=== PATIENT | female | born 1940 | race Caucasian/White ===

== ENCOUNTER 2021-11-28 07:04 | Inpatient (IN) | payer MEDICARE, BC ==
--- NOTE | 2021-11-28 07:48 | ED ---
General Adult HPI - General Chief complaint: Neuro Symptoms/Deficit Stated complaint: L sided weakness, Dizziness Time Seen by Provider: 11/28/21 07:06 Source: patient Mode of arrival: wheelchair Limitations: no limitations - History of Present Illness Initial comments: Dictation was produced using [employer] dictation software. please excuse any gramm atical, word or spelling errors. Chief Complaint: Patient is 81-year-old female presents to the emergency Department with left lower extremity weakness History of Present Illness: Patient is a 81-year-old female presents to the emergency department for left lower extremity weakness. Patient states her symptoms began yesterday. Patient states that she tried to stand up and noticed that her left leg was weaker. Patient states she only notices when she tries to get up and stand. 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 She states that she gets frequent ocular injections. Patient states since she first noticed her symptoms yesterday her left lower extremity weakness is significantly improved. Patient also reports a very mild headache. States is not the worse headache of her life not severe. She states it's bitemporal and throbbing in nature. The ROS documented in this emergency department record has been reviewed and confirmed by me. Those systems with pertinent positive or negative responses have been documented in the HPI. All other systems are other negative and/or noncontributory. PHYSICAL EXAM: General Impression: Alert and oriented x3, not in acute distress HEENT: Normocephalic atraumatic, extra-ocular movements intact, pupils equal and reactive to light bilaterally, mucous membranes moist. Cardiovascular: Heart regular rate and rhythm Chest: Able to complete full sentences, no retractions, no tachypnea Abdomen: abdomen soft, non-tender, non-distended, no organomegaly Musculoskeletal: Pulses present and equal in all extremities, no peripheral edema Motor: no focal deficits noted Neurological: CN II-XII grossly intact, no focal motor or sensory deficits noted, NIH 0, neurovascularly intact to the left lower extremity Skin: Intact with no visualized rashes Psych: Normal affect and mood ED course: 81-year-old female presents to the emergency department for left lower extremity weakness. Her neurologic exam is unremarkable. Her NIH score is 0. Patient does not have any physical exam findings to suggest CVA however she does have reported left lower extremity weakness especially with ambulating. Signs upon arrival are within acceptable limits. Patient's well-appearing at the bedside. Patient not a candidate for alteplase due to time of onset of symptoms exceeds the criteria and patient has NIH 0. Risk outweigh the benefits. Computed tomography scan of brain shows area of decreased attenuation in the posterior right temporal parietal region compatible with acute CVA. No evidence of hemorrhagic conversion. Laboratory evaluation obtained. CBC, coag panel, metabolic panel is unremarkable. CT angiography of the head and neck was obtained showing no large vessel occlusion. Patient given aspirin will be admitted to hospital with consultation to neurology. EKG interpretation: Ventricular rate 59, sinus bradycardia, TN interval 179, care is 80, QTc 417. No TN prolongation, no QTC prolongation, no ST or T-wave changes noted. No old EKG for comparison. Overall, this EKG is unremarkable - Related Data Allergies Allergy/AdvReac Type Severity Reaction Status Date / Time No Known Allergies Allergy Verified 11/28/21 07:15 Review of Systems ROS Statement: Those systems with pertinent positive or pertinent negative responses have been documented in the HPI. ROS Other: All systems not noted in ROS Statement are negative. Past Medical History Past Medical History: Hyperlipidemia, Hypertension History of Any Multi-Drug Resistant Organisms: None Reported Past Surgical History: Hysterectomy Past Psychological History: No Psychological Hx Reported Smoking Status: Never smoker Past Alcohol Use History: None Reported Past Drug Use History: None Reported General Exam Limitations: no limitations Course Vital Signs 11/28/21 11/28/21 11/28/21 07:10 07:55 08:55 Temperature 97.6 F Pulse Rate 64 57 L 56 L Respiratory 16 16 16 Rate Blood Pressure 163/87 180/89 180/76 O2 Sat by Pulse 98 98 100 Oximetry 11/28/21 09:18 Temperature Pulse Rate 57 L Respiratory 16 Rate Blood Pressure 180/76 O2 Sat by Pulse 98 Oximetry Medical Decision Making - Lab Data Result diagrams: 11/28/21 07:48 11/28/21 07:48 Lab Results 11/28/21 11/28/21 11/28/21 Range/Units 07:48 07:48 07:48 WBC 8.0 (3.8-10.6) k/uL RBC 4.55 (3.80-5.40) m/uL Hgb 13.7 (11.4-16.0) gm/dL Hct 42.6 (34.0-46.0) % MCV 93.6 (80.0-100.0) fL MCH 30.2 (25.0-35.0) pg MCHC 32.3 (31.0-37.0) g/dL RDW 12.6 (11.5-15.5) % Plt Count 242 (150-450) k/uL MPV 8.6 Neutrophils % 79 % Lymphocytes % 12 % Monocytes % 5 % Eosinophils % 2 % Basophils % 1 % Neutrophils # 6.3 (1.3-7.7) k/uL Lymphocytes # 1.0 (1.0-4.8) k/uL Monocytes # 0.4 (0-1.0) k/uL Eosinophils # 0.2 (0-0.7) k/uL Basophils # 0.1 (0-0.2) k/uL PT 10.4 (9.0-12.0) sec INR 1.0 (<1.2) APTT 21.4 L (22.0-30.0) sec Sodium 136 L (137-145) mmol/L Potassium 4.1 (3.5-5.1) mmol/L Chloride 105 (98-107) mmol/L Carbon Dioxide 22 (22-30) mmol/L Anion Gap 9 mmol/L BUN 15 (7-17) mg/dL Creatinine 0.90 (0.52-1.04) mg/dL Est GFR (CKD-EPI)AfAm 71 (>60 ml/min/1.73 sqM) Est GFR (CKD-EPI)NonAf 61 (>60 ml/min/1.73 sqM) Glucose 135 H (74-99) mg/dL Calcium 9.4 (8.4-10.2) mg/dL Critical Care Time Critical Care Time: No Disposition Clinical Impression: Cerebrovascular accident (CVA) Disposition: ADMITTED IP TO THIS [facility] Condition: Serious Referrals: Lucille Dickey MD [Primary Care Provider] - 1-2 days Decision Time: 09:37
[2021-11-28 07:56] LABS: Basophils # (A) 0.1 k/uL (0-0.2); Basophils % (A) 1 %; Eosinophils # (A) 0.2 k/uL (0-0.7); Eosinophils % (A) 2 %; HCT 42.6 % (34.0-46.0); HGB 13.7 gm/dL (11.4-16.0); Lymphocytes % (A) 12 %; MCH 30.2 pg (25.0-35.0); MCHC 32.3 g/dL (31.0-37.0); MCV 93.6 fL (80.0-100.0); Mean Platelet Volume 8.6; Monocytes # (A) 0.4 k/uL (0-1.0); Monocytes % (A) 5 %; Neutrophils # (A) 6.3 k/uL (1.3-7.7); Neutrophils % (A) 79 %; Platelet Count 242 k/uL (150-450); RBC 4.55 m/uL (3.80-5.40); RDW 12.6 % (11.5-15.5)
[2021-11-28 08:08] LABS: Calcium 9.4 mg/dL (8.4-10.2); Potassium 4.1 mmol/L (3.5-5.1)
--- NOTE | 2021-11-28 08:13 | CT ---
EXAMINATION TYPE: CT brain wo con DATE OF EXAM: 11/28/2021 COMPARISON: None HISTORY: Lt leg weakness CT DLP: 1066.[address] of the brain was performed. The ventricles, basal cisterns and sulci overlying the cerebral convexities demonstrate mild enlargem ent. Acute area of decreased attenuation posterior right temporal parietal region measuring 4.7 x 2.7 cm compatible with acute CVA. There is no evidence for intracranial hemorrhage or sulcal effacement. There is decreased attenuation about the periventricular white matter and deep white matter of both c erebral hemispheres, compatible with chronic small vessel ischemia. Differential diagnosis does inclu de demyelination. No mass effects are seen.No midline shift. Osseous calvarium is intact. If symptoms persist consider MRI. IMPRESSION: 1. Acute area of decreased attenuation posterior right temporal parietal region measuring 4.7 x 2.7 c m compatible with acute CVA. No evidence for hemorrhagic transformation.
[2021-11-28 08:16] LABS: Prothrombin Time 10.4 sec (9.0-12.0)
[2021-11-28 08:21] LABS: Partial Thromboplastin Time 21.4 sec (22.0-30.0)
[2021-11-28] MEDS ORDERED: ASPIRIN 81 MG PO STA (09:06)
--- NOTE | 2021-11-28 09:26 | CT ---
EXAMINATION TYPE: CT angio head neck DATE OF EXAM: 11/28/2021 COMPARISON: None HISTORY: Lt sided weakness, dizziness CT DLP: 375.5 mGycm CONTRAST: Performed with IV Contrast, patient injected with 65 mL of Isovue 370. Combination Contrast CTA cervical carotids and [place] CTA cervical carotids with 3-D recons truction Contrast CTA of the cervical carotids was performed 3-D reconstruction imaging obtained at a separate workstation. Right carotid system: Mild plaque is seen of the right common carotid artery. There is mild plaque a lso noted at the carotid bulb and proximal ICA. No significant diameter reduction. ECA is patent. Right vertebral artery appears unremarkable. Left carotid system: Mild plaque is seen of the left common carotid artery. There is mild plaque als o noted at the carotid bulb and proximal ICA. No significant diameter reduction. ECA is patent. Lef t vertebral artery appears unremarkable. IMPRESSION: 1. No significant diameter reduction to account for the patient's symptoms. CTA [place] with 3-D reconstruction Contrast CTA of the [place] was performed 3-D reconstruction imaging obtained at a separate workstation. There is occlusion right [employer] at its midportion compatible with right [employer] territory infarct. Left [employer] demonstrates a normal appearance. The remaining intracranial portions of the internal carotid arterie s and their major tributaries are patent as is the vertebrobasilar system. I do not see evidence for sizable aneurysm or vascular malformation. Please note MRI provides greater sensitivity and specific ity. Visualized brain appears grossly unremarkable. IMPRESSION: 1. There is occlusion right [employer] at its midportion compatible with right [employer] territory infarct. NASCET criteria was used in interpretation of this exam?
[2021-11-28] MEDS: SODIUM CHLORIDE 0.9% 1,000 ML IV SCH (09:46)
[2021-11-28] MEDS ORDERED: ATORVASTATIN 80 MG TAB PO STA (09:57)
--- NOTE | 2021-11-28 13:04 | P.CNNES ---
History of Present Illness Consult date: 11/28/21 Requesting physician: Brian Gonzalez Reason for Consult: acute CVA History of Present Illness: This is a 81-year-old woman with history of hypertension, dyslipidemia, right eye cataract and glaucoma as well as macular degeneration who presented to the emergency department because of the left leg weakness, dizziness. Patient is accompanied by her daughter and son-in-law who are bedside. He is seems the patient symptoms onset was at 5am yesterday and went to bed prior to that at 7:30 PM the night prior. She stated that when she woke up yesterday of 5 AM she noticed that the her left leg was heavy, she was having dizziness and lightheadedness and mild headache over the frontal region. Patient thought was due to her blood pressure but her symptoms continued. As a result, it seems her other family members were informed the next day and so she was brought to the hospital because of her symptoms. She denies any nausea, vomiting, denies any numbness, difficulty swallowing. She denies any history of stroke or TIA in the past. Patient is on aspirin 81 mg daily as well as Lipitor 40 mg daily. She denies of any tobacco use or any illicit drug use. The next Some of the workup in our facility consisted of: Her initial low blood pressure was 163/87 repeated was in the 180s over 70s to 80s. CT of the head is reported as acute area of decreased attenuation posterior right temporal parietal region measuring 4.72.7 cm compatible with acute CVA. No evidence for hemorrhagic transformation. I personally reviewed the CT of the head and I feel it's more acute to subacute subacute (leaning towards subacute) over the left temporal occipital region. Otherwise no intracranial hemorrhage CT angiography of the head and neck There is occlusion in the right TRAINING TECHNICIAN at it's midportion compatible with a right TRAINING TECHNICIAN territory infarct Patient NIH stroke scale was a 0. Patient is not a candidate for alteplase due to her being outside the window and the risks outweigh the benefits. Review of Systems Review of system: The 12 point system was reviewed and apparent positive and negative per HPI. Past Medical History Past Medical History: Hyperlipidemia, Hypertension History of Any Multi-Drug Resistant Organisms: None Reported Past Surgical History: Hysterectomy Past Psychological History: No Psychological Hx Reported Smoking Status: Never smoker Past Alcohol Use History: None Reported Past Drug Use History: None Reported Medications and Allergies Home Medications Medication Instructions Recorded Confirmed Type Atorvastatin Calcium [Lipitor] 40 mg PO DAILY 11/28/21 11/28/21 History Brimonidine Tartrate [Alphagan P 1 drops BOTH EYES BID 11/28/21 11/28/21 History 0.2% Ophth Soln] Dorzolamide HCl/Pf [Dorzolamide 2% 1 drop BOTH EYES BID 11/28/21 11/28/21 History Eye Drop] Latanoprost/Pf [Latanoprost 0.005% 1 drop BOTH EYES HS 11/28/21 11/28/21 History Eye Drop] Timolol 0.5% Ophth Soln [Timoptic 1 drop BOTH EYES BID 11/28/21 11/28/21 History 0.5% Ophth Soln] atenoloL [Tenormin] 25 mg PO DAILY 11/28/21 11/28/21 History lisinopriL [Zestril] 10 mg PO DAILY 11/28/21 11/28/21 History Allergies Allergy/AdvReac Type Severity Reaction Status Date / Time No Known Allergies Allergy Verified 11/28/21 11:07 Physical Examination - Vital Signs Vital Signs: Vital Signs Temp Pulse Pulse Resp BP BP Pulse Ox 11/28/21 12:00 98.2 F 51 L 16 182/81 99 11/28/21 10:45 97.3 F L 54 L 18 198/64 99 11/28/21 09:31 52 L 16 186/85 98 11/28/21 09:18 57 L 16 180/76 98 11/28/21 08:55 56 L 16 180/76 100 11/28/21 07:55 57 L 16 180/89 98 11/28/21 07:10 97.6 F 64 16 163/87 98 Intake and Output 11/27/21 11/28/21 11/28/21 22:59 06:59 14:59 Other: Weight 58.513 kg GENERAL: The patient is lying in bed and is not in acute distress. CHEST: The heart rate is regular rate rhythm. No murmurs to auscultation. LUNG: Clear to auscultation bilaterally no wheezing noted throughout. Not labored breathing. ABDOMEN/GI: Bowel sounds present in all 4 quadrants. No tenderness to palpation throughout. NEUROLOGICAL: Higher mental function: The patient is awake, alert, oriented to self, place and time. Patient is following commands. No aphasia and no neglect. Cranial nerves: The pupils are round, equal and reactive to light and accommodation. Visual luna is left upper quandrant field cut bilaterally. Extraocular movement is intact no nystagmus is noted. Facial sensation is normal to touch throughout. The facial strength is normal throughout. Hearing is normal bilaterally to hand rub. Tongue is midline and moved [id number] without any difficulty. No dysarthria is noted. Shoulder shrug is normal bilaterally. Motor: The strength is left upper extremity is 4+ and no drift. Otherwise 5 over 5 throughout. Normal tone and bulk. Cerebellum: Normal finger to nose heel to [place] bilaterally. Sensation: Sensation is normal to touch throughout. Reflexes (right/left): 2+ throughout Plantars are mute bilaterally. Results - Laboratory Findings CBC and BMP: 11/28/21 07:48 11/28/21 07:48 Abnormal Lab Findings: Abnormal Labs 11/28/21 11/28/21 07:48 07:48 APTT 21.4 L Sodium 136 L Glucose 135 H Assessment and Plan Assessment: Acute to subacute CVA (right TRAINING TECHNICIAN stroke. I feel it's more right temporal occipital region. Has left superior homonymous quadrant anopia, left upper extremity weakness). Etiology of stroke is cryptogenic but seems embolic. Hypertension Dyslipidemia Plan: In the ED the patient was given aspirin 324mg once. I restarted the patient home medication of aspirin 81 mg daily and in addition I start the patient on Plavix 75 mg daily. The patient is to be on dual antiplatelet for 21 days and after 21 days stop aspirin but continue Plavix indefinitely. Continue Lipitor 40 mg daily at bedtime for secondary stroke prophylaxis but in addition I gave her a loading dose of Lipitor 80 mg once. Ordered MRI of the brain, TSH, hemoglobin A1c 2-D echo is ordered as well lipid panel. Every 4 hours neuro checks On cardiac monitoring Slowly control her hypertension and the avoid any aggressive measurement. I highly recommended the patient to be placed on an event monitor for 30 days prior to the leaving the hospital and to follow up with cardiology as outpatient. For DVT prophylaxis started the patient on subcu heparin 5000 units every 8 hours Recommend the patient to follow-up with a neurologist as outpatient within 1-2 weeks. The plan was discussed with the patient and her family members who were at bedside (daughter and son-in-law). Thank you for the consultation. Tim Russo M.D. Neuro-hospitalist Time with Patient: Greater than 30
[2021-11-28] MEDS: BRIMONIDINE TARTRATE 0.2% DROPS 5 ML BTL BOTH EYES SCH ×2 (13:08→20:53)
[2021-11-28] MEDS: DORZOLAMIDE HCL 2% DROPS 10 ML BTL BOTH EYES SCH ×2 (13:08→20:53)
--- NOTE | 2021-11-28 14:04 | P.HPIM ---
History of Present Illness This is a pleasant 81 years old female with past medical history of Hyperlipidemia, Hypertension Presents because of left-sided weakness and heaviness since yesterday however today his weakness in both upper and lower extremity are significantly improved, especially her leg she feels almost back to normal while some mild residual effect in the left upper extremity. She had some headache but now improved, no blurred vision or slurred speech. No gait abnormality. She felt lightheadedness also patient denies any chest pain or change in urine or bowel habits. No dyspnea. No fever. Patient may be bradycardic, blood pressure is 198/64, CBC, INR and BMP are unremarkable. EKG shows sinus bradycardia at [address]-T changes CTA of the brain showing possible right [facility] occlusion and infarct CT of the brain: Acute area of attenuation in the posterior right temporal region measuring 4.7 x 2.7 cm compatible with acute CVA Review of Systems CONSTITUTIONAL: No fever, no malaise, no fatigue. HEENT: No recent visual problems or hearing problems. Denied any sore throat. CARDIOVASCULAR: No orthopnea, PND, no palpitations, no syncope. PULMONARY: No shortness of breath, no cough, no hemoptysis. GASTROINTESTINAL: No diarrhea, no nausea, no vomiting, no abdominal pain. Normoactive bowel sounds. NEUROLOGICAL: No headaches, no weakness, no numbness. HEMATOLOGICAL: Denies any bleeding or petechiae. GENITOURINARY: Denies any burning micturition, frequency, or urgency. MUSCULOSKELETAL/RHEUMATOLOGICAL: Denies any joint pain, swelling, or any muscle pain. ENDOCRINE: Denies any polyuria or polydipsia. Past Medical History Past Medical History: Hyperlipidemia, Hypertension History of Any Multi-Drug Resistant Organisms: None Reported Past Surgical History: Hysterectomy Past Psychological History: No Psychological Hx Reported Smoking Status: Never smoker Past Alcohol Use History: None Reported Past Drug Use History: None Reported Medications and Allergies Home Medications Medication Instructions Recorded Confirmed Type Atorvastatin Calcium [Lipitor] 40 mg PO DAILY 11/28/21 11/28/21 History Brimonidine Tartrate [Alphagan P 1 drops BOTH EYES BID 11/28/21 11/28/21 History 0.2% Ophth Soln] Dorzolamide HCl/Pf [Dorzolamide 2% 1 drop BOTH EYES BID 11/28/21 11/28/21 History Eye Drop] Latanoprost/Pf [Latanoprost 0.005% 1 drop BOTH EYES HS 11/28/21 11/28/21 History Eye Drop] Timolol 0.5% Ophth Soln [Timoptic 1 drop BOTH EYES BID 11/28/21 11/28/21 History 0.5% Ophth Soln] atenoloL [Tenormin] 25 mg PO DAILY 11/28/21 11/28/21 History lisinopriL [Zestril] 10 mg PO DAILY 11/28/21 11/28/21 History Allergies Allergy/AdvReac Type Severity Reaction Status Date / Time No Known Allergies Allergy Verified 11/28/21 11:07 Physical Exam Vitals: Vital Signs Temp Pulse Pulse Resp BP BP Pulse Ox 11/28/21 10:45 97.3 F L 54 L 18 198/64 99 11/28/21 09:31 52 L 16 186/85 98 11/28/21 09:18 57 L 16 180/76 98 11/28/21 08:55 56 L 16 180/76 100 11/28/21 07:55 57 L 16 180/89 98 11/28/21 07:10 97.6 F 64 16 163/87 98 Intake and Output 11/27/21 11/28/21 11/28/21 22:59 06:59 14:59 Other: Weight 58.513 kg GENERAL: The patient is alert and oriented x3, not in any acute distress. Well developed, well nourished. HEENT: Pupils are round and equally reacting to light. EOMI. No scleral icterus. No conjunctival pallor. Normocephalic, atraumatic. No pharyngeal erythema. No thyromegaly. CARDIOVASCULAR: S1 and S2 present. No murmurs, rubs, or gallops. PULMONARY: Chest is clear to auscultation, no wheezing or crackles. ABDOMEN: Soft, nontender, nondistended, normoactive bowel sounds. No palpable organomegaly. MUSCULOSKELETAL: No joint swelling or deformity. EXTREMITIES: No cyanosis, clubbing, or pedal edema. NEUROLOGICAL: Gross neurological examination did not reveal any focal deficits. SKIN: No rashes. No petechiae Results CBC & Chem 7: 11/28/21 07:48 11/28/21 07:48 Labs: Abnormal Lab Results - Last 24 Hours (Table) 11/28/21 11/28/21 Range/Units 07:48 07:48 APTT 21.4 L (22.0-30.0) sec Sodium 136 L (137-145) mmol/L Glucose 135 H (74-99) mg/dL Assessment and Plan Assessment: Left hemiparesis secondary to acute stroke., CT of the brain showing possible right [facility] occlusion and infarct with right temporal stroke seen January the brain Hypertension, permissive hypertension for possible stroke Hyperlipidemia Plan: This is a pleasant 81 his old female who presents with left hemiparesis. Neurology consult MRI of the brain Continue with aspirin 325 mg Labs and medication were reviewed.. Continue same treatment. Continue with symptomatic treatment. Resume home medication. Monitor lytes and vitals. DVT and GI prophylaxis. Further recommendations depends on the clinical course of the patient DVT prophylaxis: Subcutaneous heparin GI Prophylaxis: Pepcid PT/OT: Pending Prognosis is guarded
[2021-11-28 14:51] LABS: T4, Free (Free Thyroxine) 1.47 ng/dL (0.78-2.19)
--- NOTE | 2021-11-28 15:37 | CA ---
Transthoracic Echo Report Name: Lakeisha Velasquez Age: 81 Gender: F : 1940 Exam Date: 11/28/2021 10:33 Exam Location: [facility] Ht (in): 64 Wt (lb): 129 Ordering Physician: Tim Russo MD Attending/Referring Phys: Plastic Press Operator Gail Go RDCS Procedure CPT: Indications: stroke Cardiac Hx: No cardia hx Technical Quality: Fair Contrast 1: Total Dose (mL): Contrast 2: Total Dose (mL): MEASUREMENTS (Male / Female) Normal Values 2D ECHO LV Diastolic Diameter PLAX 3.8 cm 4.2 - 5.9 / 3.9 - 5.3 cm LV Systolic Diameter PLAX 2.1 cm IVS Diastolic Thickness 1.1 cm 0.6 - 1.0 / 0.6 - 0.9 cm LVPW Diastolic Thickness 1.0 cm 0.6 - 1.0 / 0.6 - 0.9 cm LV Relative Wall Thickness 0.6 RV Internal Dim ED PLAX 2.7 cm M-MODE Aortic Root Diameter MM 2.6 cm LA Systolic Diameter MM 2.9 cm LA Ao Ratio MM 1.1 MV E Point Septal Separation 0.5 cm AV Cusp Separation MM 1.7 cm DOPPLER AV Peak Velocity 108.5 cm/s AV Peak Gradient 4.7 mmHg MV Area PHT 3.3 cm??? MR Peak Velocity 189.6 cm/s MR Peak Gradient 14.4 mmHg Mitral E Point Velocity 75.0 cm/s Mitral A Point Velocity 69.6 cm/s Mitral E to A Ratio 1.1 MV Deceleration Time 232.7 ms TR Peak Velocity 183.6 cm/s TR Peak Gradient 13.5 mmHg Right Ventricular Systolic Press 18.5 mmHg FINDINGS Left Ventricle Mildly increased septal wall thickness. Mildly increased posterior wall thickness. Left ventricular ejection fraction is estimated at 55-60__ %. Left ventricular cavity size normal. Right Ventricle Normal right ventricular size and function. Right Atrium Normal right atrial size. Left Atrium The left atrium is normal in size. Mitral Valve Structurally normal mitral valve without significant stenosis or prolapse. There is trace mitral regurgitation. Mitral valve thickened. Aortic Valve Structurally normal aortic valve without significant sclerosis or stenosis. There is no aortic regurgitation. Tricuspid Valve Structurally normal tricuspid valve without significant stenosis. Pulmonary artery systolic pressure is normal. Trace tricuspid regurgitation. Pulmonic Valve Structurally normal pulmonic valve without significant stenosis. There is no pulmonic regurgitation. Pericardium Normal pericardium without effusion. Aorta Normal aortic root dimension. CONCLUSIONS #1. Normal left ventricular size with mild concentric hypertrophy #2. Preserved LV function. #3. Trace mitral and tricuspid regurgitation Previewed by: Dr. Gianni Appiah MD (Electronically Signed) Final Date: 28 November 2021 15:36
[2021-11-28] MEDS: HEPARIN SODIUM,PORCINE/PF 5,000 UNIT/0.5 ML SYRINGE SQ SCH ×2 (16:19→23:31)
[2021-11-28] MEDS: CLOPIDOGREL 75 MG TAB PO SCH (16:20)
[2021-11-28] MEDS: LATANOPROST 0.005% OPHTH DROPS 2.5 ML BTL BOTH EYES SCH (20:52)
[2021-11-28] MEDS: TIMOLOL 0.5% OPHTH DROPS 5 ML BTL BOTH EYES SCH (20:52)
[2021-11-28] MEDS: FAMOTIDINE 20 MG/2 ML VIAL IV SCH (20:56)
[2021-11-29] MEDS: atenoloL 25 MG TAB PO SCH (08:56)
[2021-11-29] MEDS: CLOPIDOGREL 75 MG TAB PO SCH (08:56)
[2021-11-29] MEDS: ASPIRIN 81 MG PO SCH (08:56)
[2021-11-29] MEDS: HEPARIN SODIUM,PORCINE/PF 5,000 UNIT/0.5 ML SYRINGE SQ SCH ×3 (08:57→23:25)
[2021-11-29] MEDS: BRIMONIDINE TARTRATE 0.2% DROPS 5 ML BTL BOTH EYES SCH ×2 (08:57→20:13)
[2021-11-29] MEDS: TIMOLOL 0.5% OPHTH DROPS 5 ML BTL BOTH EYES SCH ×2 (08:57→20:13)
[2021-11-29] MEDS: DORZOLAMIDE HCL 2% DROPS 10 ML BTL BOTH EYES SCH ×2 (08:57→20:13)
[2021-11-29] MEDS ORDERED: ASPIRIN 325 MG TAB PO SCH (09:00)
[2021-11-29] MEDS ORDERED: NAPROXEN 250 MG TAB PO PRN (10:58)
[2021-11-29] MEDS ORDERED: ACETAMINOPHEN TAB 325 MG TAB PO STA (11:14)
[2021-11-29] MEDS ORDERED: ACETAMINOPHEN TAB 325 MG TAB PO PRN (11:14)
--- NOTE | 2021-11-29 11:29 | P.PN ---
Subjective Progress Note Date: 11/29/21 The patient is seen at bedside and stated she feels somewhat better today. She feels her left lower extremity heaviness has resolved. Has mild headache over the center of head. Denies any new focal deficit. Pending MRI Brain to be performed. Objective - Vital Signs Vital signs: Vital Signs Temp 98.4 F 11/29/21 04:00 Pulse 59 L 11/29/21 04:00 Resp 12 11/29/21 04:00 BP 160/79 11/29/21 04:00 Pulse Ox 99 11/29/21 04:00 FiO2 Intake & Output 11/28/21 11/29/21 11/29/21 18:59 06:59 18:59 Intake Total 480 240 120 Balance 480 240 120 Weight 58.513 kg Intake: Oral 480 240 120 Other: Voiding Method Toilet Toilet # Voids 3 2 - Exam GENERAL: The patient is lying in bed and is not in acute distress. NEUROLOGICAL: Higher mental function: The patient is awake, alert, oriented to self, place and time. Patient is following commands. No aphasia and no neglect. Cranial nerves: The pupils are round, equal and reactive to light and accommodation. Visual luna is left upper quandrant field cut bilaterally. Extraocular movement is intact no nystagmus is noted. Facial sensation is normal to touch throughout. The facial strength is normal throughout. Hearing is normal bilaterally to hand rub. Tongue is midline and moved [id number] without any difficulty. No dysarthria is noted. Shoulder shrug is normal bilaterally. Motor: The strength is left upper extremity is 5- and no drift. Otherwise 5 over 5 throughout. Normal tone and bulk. Cerebellum: Normal finger to nose heel to castelan bilaterally. Sensation: Sensation is normal to touch throughout. Reflexes (right/left): 2+ throughout Plantars are mute bilaterally. Some of the workup in our facility consisted of: TSH: 6.720 Free T4: 1.47 HbA1c: 6.0 CT of the head is reported as acute area of decreased attenuation posterior right temporal parietal region measuring 4.72.7 cm compatible with acute CVA. No evidence for hemorrhagic transformation. I personally reviewed the CT of the head and I feel it's more acute to subacute subacute (leaning towards subacute) over the left temporal occipital region. 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 I feel it's more right temporal occipital region. Has left superior homonymous quadrant anopia, mild left upper extremity weakness). Etiology of stroke is cryptogenic but seems embolic. Hypertension Dyslipidemia Plan: Continue home medication of aspirin 81 mg daily and in addition I start the patient on Plavix 75 mg daily (new during this hospital visit). The patient is to be on dual antiplatelet for 21 days and after 21 days stop aspirin but continue Plavix indefinitely. Continue Lipitor 40 mg daily at bedtime for secondary stroke prophylaxis. Pending MRI of the brain, 2-D echo and lipid panel. Every 4 hours neuro checks On cardiac monitoring Slowly control her hypertension and the avoid any aggressive measurement. I highly recommended the patient to be placed on an event monitor for 30 days prior to the leaving the hospital and to follow up with cardiology as outpatient. Cardiology is consulted. For DVT prophylaxis started On subcu heparin 5000 units every 8 hours Recommend the patient to follow-up with a neurologist as outpatient within 1-2 weeks. The plan was discussed with the patient and her daughter (via phone). Dr. Gaspar will start neurology service tomorrow AM. Tim Russo M.D. Neuro-hospitalist Time with Patient: Less than 30
[2021-11-29 11:38] LABS: Chol/HDL Ratio 2.92 Ratio; LDL Cholesterol,Calculated 91.2 mg/dL (0.0-131.0); VLDL Calculation 14.58 mg/dL (5.00-40.00)
[2021-11-29] MEDS: SODIUM CHLORIDE 0.9% 1,000 ML IV SCH (18:48)
[2021-11-29] MEDS: FAMOTIDINE 20 MG/2 ML VIAL IV SCH (20:12)
[2021-11-29] MEDS: LATANOPROST 0.005% OPHTH DROPS 2.5 ML BTL BOTH EYES SCH (20:12)
--- NOTE | 2021-11-29 20:59 | P.PN ---
Subjective This is a pleasant 81 years old female with past medical history of Hyperlipidemia, Hypertension Presents because of left-sided weakness and heaviness since yesterday however today his weakness in both upper and lower extremity are significantly improved, especially her leg she feels almost back to normal while some mild residual effect in the left upper extremity. She had some headache but now improved, no blurred vision or slurred speech. No gait abnormality. She felt lightheadedness also patient denies any chest pain or change in urine or bowel habits. No dyspnea. No fever. Patient may be bradycardic, blood pressure is 198/64, CBC, INR and BMP are unremarkable. EKG shows sinus bradycardia at [address]-T changes CTA of the brain showing possible right SWIMMER occlusion and infarct CT of the brain: Acute area of attenuation in the posterior right temporal region measuring 4.7 x 2.7 cm compatible with acute CVA 11/29/2021 Patient left hemiparesis resolved almost back to normal, only very minimal weakness in the left upper extremity No other complaint MRI of the brain is pending Patient will need aspirin for 21 days and Plavix continuously. Physical therapy evaluation is pending Check CBC tomorrow Cartilage team consulting for possible event monitor and reevaluation Objective - Vital Signs Vital signs: Vital Signs Temp 98.2 F 11/29/21 08:00 Pulse 60 11/29/21 14:00 Resp 16 11/29/21 14:00 BP 175/79 11/29/21 08:00 Pulse Ox 97 11/29/21 08:00 FiO2 Intake & Output 11/29/21 11/29/21 11/30/21 06:59 18:59 06:59 Intake Total 240 360 Balance 240 360 Intake: Oral 240 360 Other: Voiding Method Toilet Toilet # Voids 2 - Exam GENERAL: The patient is alert and oriented x3, not in any acute distress. Well developed, well nourished. HEENT: Pupils are round and equally reacting to light. EOMI. No scleral icterus. No conjunctival pallor. Normocephalic, atraumatic. No pharyngeal erythema. No thyromegaly. CARDIOVASCULAR: S1 and S2 present. No murmurs, rubs, or gallops. PULMONARY: Chest is clear to auscultation, no wheezing or crackles. ABDOMEN: Soft, nontender, nondistended, normoactive bowel sounds. No palpable organomegaly. MUSCULOSKELETAL: No joint swelling or deformity. EXTREMITIES: No cyanosis, clubbing, or pedal edema. NEUROLOGICAL: Gross neurological examination did not reveal any focal deficits. SKIN: No rashes. no petechiae. - Labs CBC & Chem 7: 11/28/21 07:48 11/28/21 07:48 Assessment and Plan Assessment: Left hemiparesis secondary to acute stroke., CT of the brain showing possible right SWIMMER occlusion and infarct with right temporal stroke seen January the brain Hypertension, permissive hypertension for possible stroke Hyperlipidemia Plan: This is a pleasant 81 his old female who presents with left hemiparesis. Neurology consult MRI of the brain Continue with aspirin 325 mg Labs and medication were reviewed.. Continue same treatment. Continue with symptomatic treatment. Resume home medication. Monitor lytes and vitals. DVT and GI prophylaxis. Further recommendations depends on the clinical course of the patient DVT prophylaxis: Subcutaneous heparin GI Prophylaxis: Pepcid PT/OT: Pending Prognosis is guarded
[2021-11-29] MEDS ORDERED: ATORVASTATIN 40 MG TAB PO SCH (21:00)
[2021-11-29] MEDS: lisinopriL 10 MG TAB PO SCH (21:57)
[2021-11-30 07:34] LABS: Basophils # (A) 0.1 k/uL (0-0.2); Basophils % (A) 1 %; Eosinophils # (A) 0.2 k/uL (0-0.7); Eosinophils % (A) 4 %; HCT 41.8 % (34.0-46.0); HGB 13.6 gm/dL (11.4-16.0); Lymphocytes # (A) 1.3 k/uL (1.0-4.8); Lymphocytes % (A) 23 %; MCH 30.6 pg (25.0-35.0); MCHC 32.4 g/dL (31.0-37.0); MCV 94.6 fL (80.0-100.0); Mean Platelet Volume 8.4; Monocytes # (A) 0.3 k/uL (0-1.0); Monocytes % (A) 6 %; Neutrophils # (A) 3.6 k/uL (1.3-7.7); Neutrophils % (A) 65 %; Platelet Count 233 k/uL (150-450); RBC 4.42 m/uL (3.80-5.40); RDW 12.9 % (11.5-15.5); WBC 5.6 k/uL (3.8-10.6)
[2021-11-30] MEDS: atenoloL 25 MG TAB PO SCH (08:13)
[2021-11-30] MEDS: HEPARIN SODIUM,PORCINE/PF 5,000 UNIT/0.5 ML SYRINGE SQ SCH ×3 (08:13→23:59)
[2021-11-30] MEDS: TIMOLOL 0.5% OPHTH DROPS 5 ML BTL BOTH EYES SCH ×2 (08:13→21:40)
[2021-11-30] MEDS: lisinopriL 10 MG TAB PO SCH ×3 (08:13→21:40)
[2021-11-30] MEDS: CLOPIDOGREL 75 MG TAB PO SCH (08:13)
[2021-11-30] MEDS: BRIMONIDINE TARTRATE 0.2% DROPS 5 ML BTL BOTH EYES SCH ×2 (08:13→21:40)
[2021-11-30] MEDS: ASPIRIN 81 MG PO SCH (08:13)
[2021-11-30] MEDS: DORZOLAMIDE HCL 2% DROPS 10 ML BTL BOTH EYES SCH ×2 (08:14→21:41)
[2021-11-30] MEDS: SODIUM CHLORIDE 0.9% 1,000 ML IV SCH (08:19)
--- NOTE | 2021-11-30 08:29 | P.CRDCN ---
History of Present Illness Consult date: 11/30/21 History of present illness: History of Present Illness: The patient is a 81-year-old female with a known history of hypertension and hyperlipidemia who presented to the hospital with left lower extremity weakness and numbness on the right side of the face, with diagnosed with CVA. Her symptoms resolved at this time. She has a history of hypertension and hyperlipidemia but no cardiac history in the past. She is average in her exercise tolerance without any associated chest discomfort, dyspnea or arrhythmia. She is in sinus mechanism with no episodes of atrial fibrillation. She denies any PND, orthopnea or peripheral edema. Her echocardiogram showed a normal systolic function. 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 As an outpatient she was on Zestril 10 mg daily, Tenormin 25 mg daily, Lipitor 40 mg daily Review of Systems: Respiratory: No history of asthma, bronchitis or recent cough. GI: She had nausea and vomiting today. No history of peptic ulcer disease. No recent GI bleed. : No hematuria or dysuria. Nervous System: No stroke except the symptoms on presentation or seizure. Physical Examination: 81-year-old female, alert and oriented not in distress. Blood pressure 152/79 with a heart rate in the 50s Head: Normocephalic. Eyes: Sclerae nonicteric. Neck: Good carotid upstroke, no bruit, no jugular venous distention. Lungs: Clear to auscultation. Heart: Regular rate and rhythm, S1-S2, no S3, no rub. No murmur. Abdomen: Soft nontender, positive bowel sounds no organomegaly. Extremities: No edema, intact distal pulses. Labs: Cholesterol 161, LDL 91, potassium 4.1, BUN 15 with creatinine 0.90. Hemoglobin 13.6. EKG shows sinus mechanism with no acute ST segment changes. Impression: 1. Status post CVA 2. History of hypertension 3. History of hyperlipidemia Plan: 1. No evidence to suggest cardiac etiology to her neurological event, no evidence of atrial fibrillation 2. Increase lisinopril 3. Increase atorvastatin 4. Event monitor as an outpatient to rule out paroxysmal atrial fibrillation 5. Follow-up in 2 weeks. The findings and the recommendations were discussed with the patient who is in full agreement and understanding. Thank you for this consult we will follow with you. Past Medical History Past Medical History: Hyperlipidemia, Hypertension Additional Past Medical History / Comment(s): pt. states she has right eye swelling and bleeding and gets injections in that eye History of Any Multi-Drug Resistant Organisms: None Reported Past Surgical History: Hysterectomy Past Anesthesia/Blood Transfusion Reactions: No Reported Reaction Past Psychological History: No Psychological Hx Reported Smoking Status: Never smoker Past Alcohol Use History: None Reported Past Drug Use History: None Reported Medications and Allergies Home Medications Medication Instructions Recorded Confirmed Type Atorvastatin Calcium [Lipitor] 40 mg PO DAILY 11/28/21 11/28/21 History Brimonidine Tartrate [Alphagan P 1 drops BOTH EYES BID 11/28/21 11/28/21 History 0.2% Ophth Soln] Dorzolamide HCl/Pf [Dorzolamide 2% 1 drop BOTH EYES BID 11/28/21 11/28/21 History Eye Drop] Latanoprost/Pf [Latanoprost 0.005% 1 drop BOTH EYES HS 11/28/21 11/28/21 History Eye Drop] Timolol 0.5% Ophth Soln [Timoptic 1 drop BOTH EYES BID 11/28/21 11/28/21 History 0.5% Ophth Soln] atenoloL [Tenormin] 25 mg PO DAILY 11/28/21 11/28/21 History lisinopriL [Zestril] 10 mg PO DAILY 11/28/21 11/28/21 History Allergies Allergy/AdvReac Type Severity Reaction Status Date / Time No Known Allergies Allergy Verified 11/28/21 11:07 Physical Exam Vitals: Vital Signs Temp Pulse Pulse Resp BP BP Pulse Ox 11/30/21 04:00 58 L 12 152/79 98 11/30/21 00:00 98.4 F 51 L 12 149/78 98 11/29/21 23:29 98.4 F 51 L 14 149/78 98 11/29/21 20:00 98.0 F 51 L 51 L 14 163/81 163/81 98 11/29/21 16:00 97.7 F 56 L 16 183/93 95 11/29/21 14:00 60 16 11/29/21 09:31 16 Intake and Output 11/29/21 11/30/21 11/30/21 22:59 06:59 14:59 Intake Total 120 Balance 120 Intake: Oral 120 Other: Voiding Method Toilet Toilet # Voids 1 Results 11/30/21 06:30 11/28/21 07:48 Lipids 11/29/21 Range/Units 07:30 Triglycerides 72.90 (0.00-149.00) mg/dL Cholesterol 161.00 (0.00-200.00) mg/dL HDL Cholesterol 55.20 (40.00-60.00) mg/dL Cholesterol/HDL Ratio 2.92 Ratio CBC 11/30/21 Range/Units 06:30 WBC 5.6 (3.8-10.6) k/uL RBC 4.42 (3.80-5.40) m/uL Hgb 13.6 (11.4-16.0) gm/dL Hct 41.8 (34.0-46.0) % Plt Count 233 (150-450) k/uL Current Medications Generic Name Dose Route Start Last Admin Trade Name Freq PRN Reason Stop Dose Admin Acetaminophen 325 mg 11/29/21 11:14 Acetaminophen Tab 325 Mg Tab PO Q6HR PRN Fever and/ or Pain Aspirin 81 mg 11/29/21 09:00 11/30/21 08:13 Aspirin 81 Mg PO 81 mg DAILY RODRIGO Administration Atenolol 25 mg 11/29/21 09:00 11/30/21 08:13 Atenolol 25 Mg Tab PO 25 mg DAILY RODRIGO Administration Atorvastatin Calcium 40 mg 11/29/21 21:00 11/29/21 20:12 Atorvastatin 40 Mg Tab PO 40 mg HS RODRIGO Administration Brimonidine Tartrate 1 drops 11/28/21 11:45 11/30/21 08:13 Brimonidine Tartrate 0.2% Drops 5 Ml Btl BOTH EYES 1 drops BID RODRIGO Administration Clopidogrel Bisulfate 75 mg 11/28/21 12:45 11/30/21 08:13 Clopidogrel 75 Mg Tab PO 75 mg DAILY RODRIGO Administration Dorzolamide HCl 1 drops 11/28/21 11:45 11/30/21 08:14 Dorzolamide Hcl 2% Drops 10 Ml Btl BOTH EYES 1 drops BID RODRIGO Administration Famotidine 20 mg 11/30/21 21:00 Famotidine 20 Mg Tab PO HS RODRIGO Heparin Sodium (Porcine) 5,000 unit 11/28/21 16:00 11/30/21 08:13 Heparin Sodium,Porcine/Pf 5,000 Unit/0.5 Ml Syringe SQ 5,000 unit Q8HR RODRIGO Administration Sodium Chloride 1,000 mls @ 20 mls/hr 11/28/21 09:30 11/30/21 08:19 Saline 0.9% IV Not Given .Q24H RODRIGO Latanoprost 1 drops 11/28/21 21:00 11/29/21 20:12 Latanoprost 0.005% Ophth Drops 2.5 Ml Btl BOTH EYES 1 drops HS RODRIGO Administration Lisinopril 10 mg 11/29/21 21:00 11/30/21 08:13 Lisinopril 10 Mg Tab PO 10 mg DAILY RODRIGO Administration Naproxen 500 mg 11/29/21 10:58 11/29/21 11:56 Naproxen 250 Mg Tab PO 500 mg BID PRN Administration Headache Timolol Maleate 1 drops 11/28/21 21:00 11/30/21 08:13 Timolol 0.5% Ophth Drops 5 Ml Btl BOTH EYES 1 drops BID RODRIGO Administration Intake and Output 11/29/21 11/30/21 11/30/21 22:59 06:59 14:59 Intake Total 120 Balance 120 Intake: Oral 120 Other: Voiding Method Toilet Toilet # Voids 1 11/30/21 06:30 11/28/21 07:48
--- NOTE | 2021-11-30 17:55 | MR ---
EXAMINATION TYPE: MR brain wo con DATE OF EXAM: 11/30/2021 COMPARISON: CT scan 11/28/2021 HISTORY: Stroke Multiplanar multiecho imaging of the brain without contrast. The diffusion images show 6 x 3 cm area of increased signal in the medial right occipital lobe. This has increased signal also on the FLAIR and T2 images. No significant mass effect. On the FLAIR images there are scattered white matter high signal foci around both ventricles that sagrario sure up to 5 mm. Total number is partially 10. Sella turcica is intact. Corpus callosum is intact. Brainstem is intact. No evidence of orbital mass. The cerebellum is intact. IMPRESSION: Large acute right occipital lobe cortical infarct. This is posterior cerebral artery distribution. Scattered white matter signal changes that could be microvascular ischemia.
--- NOTE | 2021-11-30 20:28 | P.PN ---
Subjective This is a pleasant 81 years old female with past medical history of Hyperlipidemia, Hypertension Presents because of left-sided weakness and heaviness since yesterday however today his weakness in both upper and lower extremity are significantly improved, especially her leg she feels almost back to normal while some mild residual effect in the left upper extremity. She had some headache but now improved, no blurred vision or slurred speech. No gait abnormality. She felt lightheadedness also patient denies any chest pain or change in urine or bowel habits. No dyspnea. No fever. Patient may be bradycardic, blood pressure is 198/64, CBC, INR and BMP are unremarkable. 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 Physical therapy evaluation is pending Check CBC tomorrow Cartilage team consulting for possible event monitor and reevaluation 11/30/2021 Patient become asymptomatic since yesterday as well as today. No headache no other complaint. Blood pressure is 188/84, she remains on atenolol 25 mg and lisinopril increased to 10 mg daily up to twice a day. MRI showed large acute right occipital infarct She remains on aspirin and Plavix Neurology team R following Plan for event monitor as an outpatient, patient informed and she agrees Objective - Vital Signs Vital signs: Vital Signs Temp 98.0 F 11/30/21 08:10 Pulse 59 L 11/30/21 11:15 Resp 18 11/30/21 11:15 BP 191/88 11/30/21 11:15 Pulse Ox 99 11/30/21 11:15 FiO2 Intake & Output 11/29/21 11/30/21 11/30/21 18:59 06:59 18:59 Intake Total 360 180 Balance 360 180 Intake: Oral 360 180 Other: Voiding Method Toilet Toilet Toilet # Voids 1 2 - Exam GENERAL: The patient is alert and oriented x3, not in any acute distress. Well developed, well nourished. HEENT: Pupils are round and equally reacting to light. EOMI. No scleral icterus. No conjunctival pallor. Normocephalic, atraumatic. No pharyngeal erythema. No thyromegaly. CARDIOVASCULAR: S1 and S2 present. No murmurs, rubs, or gallops. PULMONARY: Chest is clear to auscultation, no wheezing or crackles. ABDOMEN: Soft, nontender, nondistended, normoactive bowel sounds. No palpable organomegaly. MUSCULOSKELETAL: No joint swelling or deformity. EXTREMITIES: No cyanosis, clubbing, or pedal edema. NEUROLOGICAL: Gross neurological examination did not reveal any focal deficits. SKIN: No rashes. no petechiae. - Labs CBC & Chem 7: 11/30/21 06:30 11/28/21 07:48 Assessment and Plan Assessment: Left hemiparesis secondary to acute stroke., Large acute right occipital infarct Hypertension Hyperlipidemia Plan: This is a pleasant 81 his old female who presents with left hemiparesis. Neurology consult Continue with aspirin 81 mg and Plavix Increase lisinopril to 10 mg twice a day and monitor blood pressure She'll need to event monitor upon discharge and residential solar sales consultant evaluated the patient Labs and medication were reviewed.. Continue same treatment. Continue with symptomatic treatment. Resume home medication. Monitor lytes and vitals. DVT and GI prophylaxis. Further recommendations depends on the clinical course of the patient DVT prophylaxis: Subcutaneous heparin GI Prophylaxis: Pepcid PT/OT: Home Prognosis is guarded possible discharge in 24-48 hours
[2021-11-30] MEDS ORDERED: hydrALAZINE HCL 25 MG TAB PO SCH (21:00)
[2021-11-30] MEDS: FAMOTIDINE 20 MG TAB PO SCH (21:40)
[2021-11-30] MEDS: ATORVASTATIN 80 MG TAB PO SCH (21:40)
[2021-11-30] MEDS: LATANOPROST 0.005% OPHTH DROPS 2.5 ML BTL BOTH EYES SCH (21:41)
[2021-12-01] MEDS: SODIUM CHLORIDE 0.9% 1,000 ML IV SCH (08:17)
[2021-12-01] MEDS: ASPIRIN 81 MG PO SCH (08:22)
[2021-12-01] MEDS: lisinopriL 10 MG TAB PO SCH ×2 (08:22→17:56)
[2021-12-01] MEDS: BRIMONIDINE TARTRATE 0.2% DROPS 5 ML BTL BOTH EYES SCH (08:22)
[2021-12-01] MEDS: DORZOLAMIDE HCL 2% DROPS 10 ML BTL BOTH EYES SCH (08:22)
[2021-12-01] MEDS: atenoloL 25 MG TAB PO SCH (08:22)
[2021-12-01] MEDS: HEPARIN SODIUM,PORCINE/PF 5,000 UNIT/0.5 ML SYRINGE SQ SCH ×2 (08:22→15:52)
[2021-12-01] MEDS: CLOPIDOGREL 75 MG TAB PO SCH (08:22)
[2021-12-01] MEDS: TIMOLOL 0.5% OPHTH DROPS 5 ML BTL BOTH EYES SCH (08:23)
--- NOTE | 2021-12-01 11:25 | P.PN ---
Subjective Progress Note Date: 11/30/21 Patient was seen for a follow-up. Patient initially seen by Dr. Tim Russo. Please refer to his note for details. Patient is a 81-year-old female, who has presented to the hospital with left- sided weakness and dizziness. Her NIH stroke scale was 0 in the ER. Her symptoms started the day prior to arrival. She was not a candidate for TPA. Patient was diagnosed with acute to subacute right CAR SALESPERSON territory infarct. Patient at present denies any numbness tingling focal weakness. Patient states she had headache yesterday, but now it seems to be resolved. Patient states she has been taking aspirin 81 mg every day for 10 years. Objective - Vital Signs Vital signs: Vital Signs Temp 98.2 F 11/30/21 15:37 Pulse 61 11/30/21 15:37 Resp 18 11/30/21 15:37 BP 188/84 11/30/21 15:37 Pulse Ox 98 11/30/21 15:37 FiO2 Intake & Output 11/30/21 11/30/21 12/01/21 06:59 18:59 06:59 Intake Total 540 Balance 540 Intake: Oral 540 Other: Voiding Method Toilet Toilet # Voids 1 2 - Exam Patient is an elderly female very pleasant in no acute distress. Patient is alert awake oriented to time place and person. Speech and language functions are normal. Attention, concentration and fund of knowledge is adequate. On cranial examination, pupils are round and reacting to light, visual luna are full on confrontation, with no neglect on double simultaneous stimulation. Her extraocular muscles are intact with no nystagmus. Face is symmetric, tongue protrudes to the midline. Palatal elevation and sensation normal, hearing is slightly decreased and shoulder shrug normal, facial sensation normal. Shoulder shrug normal. On muscle strength testing, there is mild left pronation but no drift and the strength is normal in arms and legs distally and proximally. Deep tendon reflexes are symmetric and plantars downgoing. Sensory to touch is equal with no neglect on double simultaneous stimulation. Cerebellar function showed no ataxia for [id number] testing. No dysdiadochokinesia. Tone and bulk of muscles normal. Gait not checked. On general examination, there is no carotid bruit or murmur, S1-S2 audible. Abd omen is soft nontender. Chest is clear. Peripheral pulses are present. No edema. - Labs CBC & Chem 7: 11/30/21 06:30 11/28/21 07:48 Assessment and Plan Assessment: Acute to subacute CVA (right CAR SALESPERSON territory stroke). Etiology of stroke is cryptogenic but seems embolic. Hypertension Dyslipidemia Plan: * Continue home medication of aspirin 81 mg daily and in addition Dr. Russo started the patient on Plavix 75 mg daily (new during this hospital visit). The patient is to be on dual antiplatelet for 21 days and after 21 days stop aspirin but continue Plavix indefinitely. Patient's Lipitor increased from 40 mg to 80 mg daily. * MRI of the brain revealed large acute right occipital lobe cortical infarct, in the right CAR SALESPERSON distribution. Scattered white matter signal changes that could be microvascular ischemia. On my review, it appears somewhat temporal occipital region on the right. There is also smaller area of ischemia involving the right periventricular white matter. Event appears embolic in nature. * 2-D echo revealed mildly increased septal wall thickness. Mildly increased posterior wall thickness. Left ventricular ejection fraction is 55-60%. Left ventricular cavity is normal. Left atrial size is normal. There is trace MR. Mitral valve thickened. Normal aortic valve. We will have bubble study performed to complete the test. * Slowly control her hypertension and the avoid any aggressive measurement. Long-term blood pressure management <130/80 * Recommend the patient to be placed on an event monitor for 30 days prior to the leaving the hospital and to follow up with cardiology as outpatient. Cardiology is consulted. * For DVT prophylaxis started On subcu heparin 5000 units every 8 hours * Recommend the patient to follow-up with a neurologist as outpatient within 1-2 weeks. Some of the workup in our facility consisted of: TSH: 6.720 Free T4: 1.47 HbA1c: 6.0 Lipid panel with cholesterol 161, LDL 91, HDL 55 and triglycerides 72. Continue CT of the head is reported as acute area of decreased attenuation posterior right temporal parietal region measuring 4.72.7 cm compatible with acute CVA. No evidence for hemorrhagic transformation. I personally reviewed the CT of the head and I feel it's more acute to subacute subacute (leaning towards subacute) over the left temporal occipital region. Otherwise no intracranial hemorrhage CT angiography of the head and neck There is occlusion in the right CAR SALESPERSON at it's midportion compatible with a right CAR SALESPERSON territory infarct
[2021-12-01 11:44] VITALS: RESP 18
--- NOTE | 2021-12-01 12:18 | P.PN ---
Subjective This is a pleasant 81 years old female with past medical history of Hyperlipidemia, Hypertension Presents because of left-sided weakness and heaviness since yesterday however today his weakness in both upper and lower extremity are significantly improved, especially her leg she feels almost back to normal while some mild residual effect in the left upper extremity. She had some headache but now improved, no blurred vision or slurred speech. No gait abnormality. She felt lightheadedness also patient denies any chest pain or change in urine or bowel habits. No dyspnea. No fever. Patient may be bradycardic, blood pressure is 198/64, CBC, INR and BMP are unremarkable. EKG shows sinus bradycardia at [address]-T changes CTA of the brain showing possible right GREEN HOUSE MANAGER occlusion and infarct CT of the brain: Acute area of attenuation in the posterior right temporal region measuring 4.7 x 2.7 cm compatible with acute CVA 11/29/2021 Patient left hemiparesis resolved almost back to normal, only very minimal weakness in the left upper extremity No other complaint MRI of the brain is pending Patient will need aspirin for 21 days and Plavix continuously. Physical therapy evaluation is pending Check CBC tomorrow Cartilage team consulting for possible event monitor and reevaluation 11/30/2021 Patient become asymptomatic since yesterday as well as today. No headache no other complaint. Blood pressure is 188/84, she remains on atenolol 25 mg and lisinopril increased to 10 mg daily up to twice a day. MRI showed large acute right occipital infarct She remains on aspirin and Plavix Neurology team R following Plan for event monitor as an outpatient, patient informed and she agrees 12/01/2021 Patient left hemiparesis almost resolved. MRI of the brain showed large right stroke, echo with bubble study is recommended and is pending. Patient also will need event monitor upon discharge. Environmental Studies Professor has been consulted. She remains on aspirin Plavix and discharge instructions she was discussed with the patient in details and she agrees. Objective - Vital Signs Vital signs: Vital Signs Temp 97.6 F 12/01/21 03:59 Pulse 59 L 12/01/21 03:59 Resp 16 12/01/21 03:59 BP 157/89 12/01/21 03:59 Pulse Ox 98 12/01/21 03:59 FiO2 Intake & Output 11/30/21 12/01/21 12/01/21 18:59 06:59 18:59 Intake Total 540 180 Balance 540 180 Intake: Oral 540 180 Other: Voiding Method Toilet Toilet # Voids 2 1 - Exam GENERAL: The patient is alert and oriented x3, not in any acute distress. Well developed, well nourished. HEENT: Pupils are round and equally reacting to light. EOMI. No scleral icterus. No conjunctival pallor. Normocephalic, atraumatic. No pharyngeal erythema. No thyromegaly. CARDIOVASCULAR: S1 and S2 present. No murmurs, rubs, or gallops. PULMONARY: Chest is clear to auscultation, no wheezing or crackles. ABDOMEN: Soft, nontender, nondistended, normoactive bowel sounds. No palpable organomegaly. MUSCULOSKELETAL: No joint swelling or deformity. EXTREMITIES: No cyanosis, clubbing, or pedal edema. NEUROLOGICAL: Gross neurological examination did not reveal any focal deficits. SKIN: No rashes. no petechiae. - Labs CBC & Chem 7: 11/30/21 06:30 11/28/21 07:48 Assessment and Plan Assessment: Left hemiparesis secondary to acute stroke., Large acute right occipital infarct Hypertension Hyperlipidemia Plan: This is a pleasant 81 his old female who presents with left hemiparesis. Neurology consult pending bubble study Continue with aspirin 81 mg and Plavix Increase lisinopril to 10 mg twice a day and monitor blood pressure She'll need to event monitor upon discharge and pin sticker evaluated the patient Labs and medication were reviewed.. Continue same treatment. Continue with symptomatic treatment. Resume home medication. Monitor lytes and vitals. DVT and GI prophylaxis. Further recommendations depends on the clinical course of the patient DVT prophylaxis: Subcutaneous heparin GI Prophylaxis: Pepcid PT/OT: Home Prognosis is guarded possible discharge in 24-48 hours
--- NOTE | 2021-12-01 13:13 | P.PN ---
Subjective The patient is a 81-year-old female with a known history of hypertension and hyperlipidemia. She does not regularly follow with a fuel manager. She presented to the hospital with left lower extremity weakness and numbness on the right side of the face, with diagnosed with CVA. MRI brain revealed large acute right occipital lobe cortical infarct. Echocardiogram reveals an EF 5560 percent, trace mitral and tricuspid regurgitation. Patient has been monitored on telemetry with no evidence of atrial fibrillation, in sinus mechanism with HR 50s. Her vital signs are stable. Her lisinopril has been increased to 10mg BID, she is also on atorvastatin 80 mg nightly, atenolol 25 mg daily, Plavix 75 mg daily, aspirin 81 mg daily ASSESSMENT Status post CVA History of hypertension History of hyperlipidemia PLAN: No evidence to suggest cardiac etiology to her neurological event, no evidence of atrial fibrillation Continue lisinopril 10mg BID, atenolol Continue statin and aspirin Event monitor as an outpatient to rule out paroxysmal atrial fibrillation, patient to have event monitor placed in the office and ready for lease picker today after discharge. Informed patient to go to office after discharge to have event monitor placed, she is in agreement and understanding. Follow up outpatient with Dr. Lehman, patient with follow up appointment on 12/16/2021. Nurse practitioner note has been reviewed by physician. Signing provider agrees with the documented findings, assessment, and plan of care. Objective - Vital Signs Vital signs: Vital Signs Temp 98.1 F 12/01/21 08:20 Pulse 60 12/01/21 11:44 Resp 18 12/01/21 11:44 BP 139/77 12/01/21 11:44 Pulse Ox 98 12/01/21 11:44 FiO2 Intake & Output 11/30/21 12/01/21 12/01/21 18:59 06:59 18:59 Intake Total 540 180 Balance 540 180 Intake: Oral 540 180 Other: Voiding Method Toilet Toilet Toilet # Voids 2 1 1 - Labs CBC & Chem 7: 11/30/21 06:30 11/28/21 07:48
[2021-12-01 17:04] VITALS: BP 176/92; PULSE 67; TEMP 97.7
--- NOTE | 2021-12-01 17:07 | CA ---
Transthoracic Echo Report Name: Lakeisha Velasquez Age: 81 Gender: F : 1940 Exam Date: 12/01/2021 13:59 Exam Location: [place] [facility] Ht (in): 64 Wt (lb): 129 Ordering Physician: Devorah Gaspar MD Attending/Referring Phys: Hvac Commercial Salesperson Marie Calvert RDCS Procedure CPT: Indications: Limited, r/o PFO please perform bubble study Cardiac Hx: Echo Done 11/28/21: Limited echo for bubble study. Technical Quality: Fair Contrast 1: Total Dose (mL): Contrast 2: Total Dose (mL): MEASUREMENTS (Male / Female) Normal Values FINDINGS Left Ventricle Right Ventricle Right Atrium Left Atrium Bubble study performed no shunt noted. Mitral Valve Aortic Valve Tricuspid Valve Pulmonic Valve Pericardium Aorta CONCLUSIONS This is a limited study done to rule out intracardiac shunt. We did not notice any bubbles crossing to the left side on this study Previewed by: Dr. Kristian Jules MD (Electronically Signed) Final Date: 01 December 2021 17:07
[2021-12-01] MEDS: FAMOTIDINE 20 MG TAB PO SCH (17:56)
[2021-12-01] MEDS: ATORVASTATIN 80 MG TAB PO SCH (17:56)
--- NOTE | 2021-12-02 00:32 | P.DS ---
Providers Date of admission: 11/28/21 09:30 Attending physician: Nancy Parra Consults: 11/28/21 09:30 Consult Physician Routine Consulting Provider: Tim Russo Consult Reason/Comments: acute CVA Do you want consulting provider notified?: Yes 11/29/21 07:51 Consult Physician Routine Consulting Provider: Gianni Appiah Consult Reason/Comments: cva , possible cardiac embolic,needs event monitor Do you want consulting provider notified?: Yes Primary care physician: Lucille Dickey Hospital Course: Diagnoses: Left hemiparesis secondary to acute stroke., Large acute right occipital infarct Hypertension Hyperlipidemia Hospital course: This is a pleasant 81 years old female with past medical history of Hyperlipidemia, Hypertension Presents because of left-sided weakness and heaviness of one-day duration patient had MRI showing large acute right occipital infarct . She was on aspirin at home, Plavix added during this admission. Patient showed interval improvement and her left-sided weakness completely resolved and patient back to baseline. Patient evaluated by neurologist and recommended to continue with aspirin and Plavix for 21 days then stop aspirin and continue with Plavix. Also event monitor is recommended and towel hemmer evaluated the patient plan for the patient to visit cardiology office tomorrow for placement of event monitor that she has follow-up towel hemmer Dr. Lehman on 12/16, patient informed with this plan and she agrees with follow-up and event monitor as well. Other than that she is back to her normal self, she denies chest pain or dyspnea. No change in urine or bowel habits. No fever. And was cleared for discharge by both cardiology and nephrology service. Problems and management plan were discussed with the patient and he verbalized understanding and acceptance Patient was found stable and can be discharged home however he needs follow-up as an outpatient. Patient was instructed to follow up with PCP Dr. Dickey within one week and patient agrees Patient also instructed to follow up with the neurologist in 1-2 weeks after discharge and she agrees to call and make appointment homogeneous are suggested for her intrauterine Dr. Dae Mishra and Dr. Saúl Og Besides her appointment with Dr. Lehman on 12/16 and she agrees Physical exam Gen: patient is a AAOx3, no distress CVS: S1-S2, RRR, no murmur Lungs: B/L CTA, no wheezing Abdomen: soft, no distention, no tenderness, positive bowel sounds Extremity: no leg edema or induration Neuro: Cranial nerves grossly intact. 6/5. Sensation intact Time spent more than 35 minutes Patient Condition at Discharge: Serious Plan - Discharge Summary Discharge Rx Participant: No New Discharge Prescriptions: New Clopidogrel [Plavix] 75 mg PO DAILY 30 Days #30 tab Aspirin 81 mg PO DAILY #21 tab Atorvastatin [Lipitor] 80 mg PO HS #30 tab Famotidine [Pepcid] 20 mg PO HS #30 tab lisinopriL [Zestril] 10 mg PO BID #60 tab Continue Latanoprost/Pf [Latanoprost 0.005% Eye Drop] 1 drop BOTH EYES HS Dorzolamide HCl/Pf [Dorzolamide 2% Eye Drop] 1 drop BOTH EYES BID atenoloL [Tenormin] 25 mg PO DAILY Timolol 0.5% Ophth Soln [Timoptic 0.5% Ophth Soln] 1 drop BOTH EYES BID Brimonidine Tartrate [Alphagan P 0.2% Ophth Soln] 1 drops BOTH EYES BID Discontinued lisinopriL [Zestril] 10 mg PO DAILY Atorvastatin Calcium [Lipitor] 40 mg PO DAILY Discharge Medication List Brimonidine Tartrate [Alphagan P 0.2% Ophth Soln] 1 drops BOTH EYES BID 11/28/21 [History] Dorzolamide HCl/Pf [Dorzolamide 2% Eye Drop] 1 drop BOTH EYES BID 11/28/21 [History] Latanoprost/Pf [Latanoprost 0.005% Eye Drop] 1 drop BOTH EYES HS 11/28/21 [History] Timolol 0.5% Ophth Soln [Timoptic 0.5% Ophth Soln] 1 drop BOTH EYES BID 11/28/21 [History] atenoloL [Tenormin] 25 mg PO DAILY 11/28/21 [History] Aspirin 81 mg PO DAILY #21 tab 12/01/21 [Rx] Atorvastatin [Lipitor] 80 mg PO HS #30 tab 12/01/21 [Rx] Clopidogrel [Plavix] 75 mg PO DAILY 30 Days #30 tab 12/01/21 [Rx] Famotidine [Pepcid] 20 mg PO HS #30 tab 12/01/21 [Rx] lisinopriL [Zestril] 10 mg PO BID #60 tab 12/01/21 [Rx] Follow up Appointment(s)/Referral(s): Jose Lehman MD [STAFF PHYSICIAN] - 12/16/21 3:45 pm Venkatesh Hays MD [REFERRING] - 2 Weeks (Neurologist--office closed patient to schedule appointment.) Dandre Pearl MD [Medical Doctor] - 2 Weeks (Neurologist--office closed patient to schedule appointment.) Torrie Hays MD [REFERRING] - 2 Weeks (Neurologist--office closed patient to schedule appointment.) Lucille Dickey MD [Primary Care Provider] - 1-2 days Patient Instructions/Handouts: Ischemic Stroke (DC) Activity/Diet/Wound Care/Special Instructions: [facility] to [facility] on [facility] [address] [phone] to continuous pickling line pickler an event monitor. You will wear the event monitor for 30 days Please follow up with Dr. Lehman, your towel hemmer, you have an appointment on December 16 at 3:45PM you will be discharge on both aspirin and plavix for 21 days, and after 21 days stop aspirin but continue Plavix indefinitely Discharge Disposition: HOME SELF-CARE
--- NOTE | 2021-12-02 12:34 | P.PN ---
Subjective Progress Note Date: 12/01/21 12/01/2021: Patient was seen for a follow-up. Patient's and daughter were present today. Patient denies any focal symptoms. No headache, no dizziness her balance is fine. No speech or language problems. 11/30/2021: Patient was seen for a follow-up. Patient initially seen by Dr. Tim Russo. Please refer to his note for details. Patient is a 81-year-old female, who has presented to the hospital with left- sided weakness and dizziness. Her NIH stroke scale was 0 in the ER. Her symptoms started the day prior to arrival. She was not a candidate for TPA. Patient was diagnosed with acute to subacute right NOUGAT CUTTER MACHINE territory infarct. Patient at present denies any numbness tingling focal weakness. Patient states she had headache yesterday, but now it seems to be resolved. Patient states she has been taking aspirin 81 mg every day for 10 years. Objective - Vital Signs Vital signs: Vital Signs Temp 98.1 F 12/01/21 08:20 Pulse 60 12/01/21 14:00 Resp 18 12/01/21 11:44 BP 139/77 12/01/21 11:44 Pulse Ox 98 12/01/21 11:44 FiO2 Intake & Output 11/30/21 12/01/21 12/01/21 18:59 06:59 18:59 Intake Total 540 360 Balance 540 360 Intake: Oral 540 360 Other: Voiding Method Toilet Toilet Toilet # Voids 2 1 1 - Exam Patient is an elderly female very pleasant in no acute distress. Patient is alert awake oriented to time place and person. Speech and language functions are normal. Attention, concentration and fund of knowledge is adequate. On cranial examination, pupils are round and reacting to light, visual luna are full on confrontation, with no neglect on double simultaneous stimulation. Her extraocular muscles are intact with no nystagmus. Face is symmetric, tongue protrudes to the midline. Palatal elevation and sensation normal, hearing is slightly decreased and shoulder shrug normal, facial sensation normal. Shoulder shrug normal. On muscle strength testing, there is mild left pronation but no drift and the strength is normal in arms and legs distally and proximally. Deep tendon reflexes are symmetric and plantars downgoing. Sensory to touch is equal with no neglect on double simultaneous stimulation. Cerebellar function showed no ataxia for [id number] testing. No dysdiadoch okinesia. Tone and bulk of muscles normal. Gait not checked. On general examination, there is no carotid bruit or murmur, S1-S2 audible. Abdomen is soft nontender. Chest is clear. Peripheral pulses are present. No edema. - Labs CBC & Chem 7: 11/30/21 06:30 11/28/21 07:48 Assessment and Plan Assessment: Acute to subacute CVA (right NOUGAT CUTTER MACHINE territory stroke). Etiology of stroke is cryptogenic but seems embolic. Her current NIH stroke scale is 0. Hypertension Dyslipidemia Plan: * Continue home medication of aspirin 81 mg daily and in addition Dr. Russo started the patient on Plavix 75 mg daily (new during this hospital visit). The patient is to be on dual antiplatelet for 21 days and after 21 days stop aspirin but continue Plavix indefinitely. Patient's Lipitor increased from 40 mg to 80 mg daily. * MRI of the brain revealed large acute right occipital lobe cortical infarct, in the right NOUGAT CUTTER MACHINE distribution. Scattered white matter signal changes that could be microvascular ischemia. On my review, it appears somewhat temporal occipital region on the right. There is also smaller linear area of ischemia involving the right periventricular white matter. Event appears embolic in nature. * 2-D echo revealed mildly increased septal wall thickness. Mildly increased po sterior wall thickness. Left ventricular ejection fraction is 55-60%. Left ventricular cavity is normal. Left atrial size is normal. There is trace MR. Mitral valve thickened. Normal aortic valve. * Limited 2-D echo with bubble study was negative. No bubbles were seen to be crossing to the left side. * Optimize control of blood pressure. Long-term blood pressure management <130/80 * Recommend the patient to be placed on an event monitor for 30 days prior to the leaving the hospital and to follow up with cardiology as outpatient. Cardiology is consulted. * For DVT prophylaxis started On subcu heparin 5000 units every 8 hours * Recommend the patient to follow-up with a neurologist as outpatient within 1-2 weeks. * Discussed with patient's family in detail. Some of the workup in our facility consisted of: TSH: 6.720 Free T4: 1.47 HbA1c: 6.0 Lipid panel with cholesterol 161, LDL 91, HDL 55 and triglycerides 72. Continue CT of the head is reported as acute area of decreased attenuation posterior right temporal parietal region measuring 4.72.7 cm compatible with acute CVA. No evidence for hemorrhagic transformation. I personally reviewed the CT of the head and I feel it's more acute to subacute subacute (leaning towards subacute) over the left temporal occipital region. Otherwise no intracranial hemorrhage CT angiography of the head and neck There is occlusion in the right NOUGAT CUTTER MACHINE at it's midportion compatible with a right NOUGAT CUTTER MACHINE territory infarct
== END 2021-12-01 18:14 | disposition home or self-care (01) | DRG 65 ==
LOC: EC 07:04 → 3SCARD 09:30
PROVIDERS: ADMIT Hospitalist; ATTEND Hospitalist
DX: I63.431 Cerebral infarction due to embolism of right posterior cerebral artery (principal); G81.94 Hemiplegia, unspecified affecting left nondominant side; R29.700 NIHSS score 0; I10 Essential (primary) hypertension; H54.61 Unqualified visual loss, right eye, normal vision left eye; H53.469 Homonymous bilateral field defects, unspecified side; E78.5 Hyperlipidemia, unspecified; Z79.82 Long term (current) use of aspirin; Z79.899 Other long term (current) drug therapy; H26.9 Unspecified cataract; H35.30 Unspecified macular degeneration; R11.2 Nausea with vomiting, unspecified; R00.1 Bradycardia, unspecified
CPT/HCPCS: 36415; 70450; 70496; 70498; 70551; 80048; 80061; 83036; 84439; 84443; 85025; 85610; 85730; 93005; 93306; 93308; 99285

== ENCOUNTER 2021-12-19 18:15 | Inpatient (IN) | payer MEDICARE, BC ==
[2021-12-19] MEDS ORDERED: SODIUM CHLORIDE 0.9% 1,000 ML IV STA ×2 (18:52→19:58)
--- NOTE | 2021-12-19 18:58 | ED ---
General Adult HPI - General Chief complaint: Neuro Symptoms/Deficit Stated complaint: Dizziness/post stroke Time Seen by Provider: 12/19/21 18:32 Source: patient Mode of arrival: ambulatory Limitations: no limitations - History of Present Illness Initial comments: Dictation was produced using [employer] dictation software. please excuse any grammatical, word or spelling errors. Chief Complaint: 81-year-old female presents emergency department for 2 episodes of syncope and dizziness History of Present Illness: This 81-year-old female presents to the emergency department for 2 episodes of syncope. She had these 2 episodes 2 days ago. She states that she's been feeling dizzy. She had these 2 episodes witnessed by her was at bedside. States that she passed out and was unconscious for approximately 2 minutes. She came to shortly afterwards. Patient was recently admitted to the hospital for CVA. During that time she was started on multiple medications. Patient denies any symptoms at this time. She states that she was dizzy. Denies sensation of room spinning. At rest she is asymptomatic. She noticed her symptoms most when up she stands up. Denies any black or bloody stools. The ROS documented in this emergency department record has been reviewed and confirmed by me. Those systems with pertinent positive or negative responses have been documented in the HPI. All other systems are other negative and/or noncontributory. PHYSICAL EXAM: General Impression: Alert and oriented x3, not in acute distress HEENT: Normocephalic atraumatic, extra-ocular movements intact, pupils equal and reactive to light bilaterally, mucous membranes moist. Cardiovascular: Heart regular rate and rhythm Chest: Able to complete full sentences, no retractions, no tachypnea Abdomen: abdomen soft, non-tender, non-distended, no organomegaly Musculoskeletal: Pulses present and equal in all extremities, no peripheral edema Motor: no focal deficits noted Neurological: CN II-XII grossly intact, no focal motor or sensory deficits noted Skin: Intact with no visualized rashes Psych: Normal affect and mood ED course: 81-year-old female presents to the emergency department for syncopal episodes. Patient history of present illness concerning for orthostatic hypotension. Chart review was performed showing an echocardiogram performed last month that did not show any signs of heart failure. Laboratory evaluation obtained. CBC unremarkable. Coag panel is negative. Metabolic panel shows sodium of 113, rest of vital signs within acceptable limits. Patient's medications are reviewed. Temperature nature me is likely the result of recent hydrochlorothiazide administration. Is concerned that her syncope is related to atenolol administration. Patient reevaluated at bedside 8:10 PM found with stable medical condition. Patient not having any symptoms of hyponatremia. Case was discussed with Dr. Russo of the ICU does not feel patient meets criteria for ICU admission. Spoke with on-call mental health aides teacher, Dr. Guerra who recommends IV hydration and every 4 hour basic metabolic panel. Like to be contacted with the results. Patient is agreeable to plan. Patient be admitted to [facility]. EKG interpretation: Ventricular rate 56, sinus bradycardia,. 154, Q's 86, QTC 434. No NM prolongation, no QTC prolongation, no ST or T-wave changes noted. EKG compared to 11/28/2021 showing no changes. Overall, this EKG is unremarkable - Related Data Home Medications Medication Instructions Recorded Confirmed Brimonidine Tartrate [Alphagan P 1 drops BOTH EYES BID 11/28/21 12/19/21 0.2% Ophth Soln] Dorzolamide HCl/Pf [Dorzolamide 2% 1 drop BOTH EYES BID 11/28/21 12/19/21 Eye Drop] Latanoprost/Pf [Latanoprost 0.005% 1 drop BOTH EYES HS 11/28/21 12/19/21 Eye Drop] Timolol 0.5% Ophth Soln [Timoptic 1 drop BOTH EYES BID 11/28/21 12/19/21 0.5% Ophth Soln] atenoloL [Tenormin] 25 mg PO DAILY 11/28/21 12/19/21 hydroCHLOROthiazide 25 mg PO DAILY 12/19/21 12/19/21 Previous Rx's Medication Instructions Recorded Aspirin 81 mg PO DAILY #21 tab 12/01/21 Atorvastatin [Lipitor] 80 mg PO HS #30 tab 12/01/21 Clopidogrel [Plavix] 75 mg PO DAILY 30 Days #30 tab 12/01/21 Famotidine [Pepcid] 20 mg PO HS #30 tab 12/01/21 lisinopriL [Zestril] 10 mg PO BID #60 tab 12/01/21 Allergies Allergy/AdvReac Type Severity Reaction Status Date / Time No Known Allergies Allergy Verified 12/19/21 19:31 Review of Systems ROS Statement: Those systems with pertinent positive or pertinent negative responses have been documented in the HPI. ROS Other: All systems not noted in ROS Statement are negative. Past Medical History Past Medical History: CVA/TIA, Hyperlipidemia, Hypertension Additional Past Medical History / Comment(s): pt. states she has right eye swelling and bleeding and gets injections in that eye History of Any Multi-Drug Resistant Organisms: None Reported Past Surgical History: Hysterectomy Past Anesthesia/Blood Transfusion Reactions: No Reported Reaction Past Psychological History: No Psychological Hx Reported Smoking Status: Never smoker Past Alcohol Use History: None Reported Past Drug Use History: None Reported General Exam Limitations: no limitations Course Vital Signs 12/19/21 12/19/21 18:24 19:37 Temperature 98 F Pulse Rate 62 56 L Respiratory 18 18 Rate Blood Pressure 137/83 144/90 O2 Sat by Pulse 99 95 Oximetry Medical Decision Making - Lab Data Result diagrams: 12/19/21 19:07 12/19/21 19:07 Lab Results 12/19/21 12/19/21 12/19/21 Range/Units 19:07 19:07 19:07 WBC 8.5 (3.8-10.6) k/uL RBC 4.59 (3.80-5.40) m/uL Hgb 13.8 (11.4-16.0) gm/dL Hct 40.0 (34.0-46.0) % MCV 87.2 D (80.0-100.0) fL MCH 30.1 (25.0-35.0) pg MCHC 34.6 (31.0-37.0) g/dL RDW 12.0 (11.5-15.5) % Plt Count 252 (150-450) k/uL MPV 7.9 Neutrophils % 80 % Lymphocytes % 11 % Monocytes % 6 % Eosinophils % 2 % Basophils % 1 % Neutrophils # 6.7 (1.3-7.7) k/uL Lymphocytes # 1.0 (1.0-4.8) k/uL Monocytes # 0.5 (0-1.0) k/uL Eosinophils # 0.2 (0-0.7) k/uL Basophils # 0.1 (0-0.2) k/uL PT 10.3 (9.0-12.0) sec INR 0.9 (<1.2) APTT 20.9 L (22.0-30.0) sec Sodium 113 L* (137-145) mmol/L Potassium 3.7 (3.5-5.1) mmol/L Chloride 81 L (98-107) mmol/L Carbon Dioxide 21 L (22-30) mmol/L Anion Gap 11 mmol/L BUN 21 H (7-17) mg/dL Creatinine 0.93 (0.52-1.04) mg/dL Est GFR (CKD-EPI)AfAm 68 (>60 ml/min/1.73 sqM) Est GFR (CKD-EPI)NonAf 59 (>60 ml/min/1.73 sqM) Glucose 129 H (74-99) mg/dL Plasma Lactic Acid Calvin (0.7-2.0) mmol/L Calcium 9.4 (8.4-10.2) mg/dL Magnesium 1.6 (1.6-2.3) mg/dL Total Bilirubin 0.9 (0.2-1.3) mg/dL AST 39 H (14-36) U/L ALT 32 (4-34) U/L Alkaline Phosphatase 77 (38-126) U/L Troponin I (0.000-0.034) ng/mL Total Protein 7.2 (6.3-8.2) g/dL Albumin 4.4 (3.5-5.0) g/dL 12/19/21 12/19/21 Range/Units 19:07 19:07 WBC (3.8-10.6) k/uL RBC (3.80-5.40) m/uL Hgb (11.4-16.0) gm/dL Hct (34.0-46.0) % MCV (80.0-100.0) fL MCH (25.0-35.0) pg MCHC (31.0-37.0) g/dL RDW (11.5-15.5) % Plt Count (150-450) k/uL MPV Neutrophils % % Lymphocytes % % Monocytes % % Eosinophils % % Basophils % % Neutrophils # (1.3-7.7) k/uL Lymphocytes # (1.0-4.8) k/uL Monocytes # (0-1.0) k/uL Eosinophils # (0-0.7) k/uL Basophils # (0-0.2) k/uL PT (9.0-12.0) sec INR (<1.2) APTT (22.0-30.0) sec Sodium (137-145) mmol/L Potassium (3.5-5.1) mmol/L Chloride (98-107) mmol/L Carbon Dioxide (22-30) mmol/L Anion Gap mmol/L BUN (7-17) mg/dL Creatinine (0.52-1.04) mg/dL Est GFR (CKD-EPI)AfAm (>60 ml/min/1.73 sqM) Est GFR (CKD-EPI)NonAf (>60 ml/min/1.73 sqM) Glucose (74-99) mg/dL Plasma Lactic Acid Calvin 0.9 (0.7-2.0) mmol/L Calcium (8.4-10.2) mg/dL Magnesium (1.6-2.3) mg/dL Total Bilirubin (0.2-1.3) mg/dL AST (14-36) U/L ALT (4-34) U/L Alkaline Phosphatase (38-126) U/L Troponin I <0.012 (0.000-0.034) ng/mL Total Protein (6.3-8.2) g/dL Albumin (3.5-5.0) g/dL Disposition Clinical Impression: Hyponatremia, Orthostatic syncope Disposition: ADMITTED IP TO THIS [facility] Condition: Serious Is patient prescribed a controlled substance at d/c from ED?: No Referrals: Lucille Dickey MD [Primary Care Provider] - 1-2 days Decision Time: 20:17
[2021-12-19 19:16] LABS: Basophils # (A) 0.1 k/uL (0-0.2); Basophils % (A) 1 %; Eosinophils # (A) 0.2 k/uL (0-0.7); Eosinophils % (A) 2 %; HGB 13.8 gm/dL (11.4-16.0); Lymphocytes % (A) 11 %; MCH 30.1 pg (25.0-35.0); MCHC 34.6 g/dL (31.0-37.0); Mean Platelet Volume 7.9; Monocytes # (A) 0.5 k/uL (0-1.0); Monocytes % (A) 6 %; Neutrophils # (A) 6.7 k/uL (1.3-7.7); Neutrophils % (A) 80 %; Platelet Count 252 k/uL (150-450); RBC 4.59 m/uL (3.80-5.40); WBC 8.5 k/uL (3.8-10.6)
[2021-12-19 19:22] LABS: Albumin 4.4 g/dL (3.5-5.0); Calcium 9.4 mg/dL (8.4-10.2); Magnesium 1.6 mg/dL (1.6-2.3); Potassium 3.7 mmol/L (3.5-5.1); Total Bilirubin 0.9 mg/dL (0.2-1.3); Total Protein 7.2 g/dL (6.3-8.2)
[2021-12-19 19:28] LABS: MCV 87.2 fL (80.0-100.0)
[2021-12-19 19:31] LABS: INR 0.9 (<1.2); Partial Thromboplastin Time 20.9 sec (22.0-30.0); Prothrombin Time 10.3 sec (9.0-12.0)
[2021-12-19] MEDS ORDERED: ACETAMINOPHEN TAB 325 MG TAB PO PRN (20:07)
[2021-12-19] MEDS ORDERED: NALOXONE 0.4 MG/ML 1 ML VIAL IV PRN (20:07)
[2021-12-19 21:32] LABS: Calcium 8.1 mg/dL (8.4-10.2); Potassium 3.6 mmol/L (3.5-5.1)
[2021-12-19] MEDS: TEMAZEPAM 15 MG CAP PO PRN (22:23)
[2021-12-19] MEDS: lisinopriL 10 MG TAB PO SCH (23:51)
[2021-12-20 01:17] LABS: Calcium 8.4 mg/dL (8.4-10.2); Potassium 3.5 mmol/L (3.5-5.1)
[2021-12-20 04:45] LABS: Calcium 8.5 mg/dL (8.4-10.2); Potassium 3.5 mmol/L (3.5-5.1)
[2021-12-20 08:03] LABS: Calcium 8.8 mg/dL (8.4-10.2); Potassium 3.9 mmol/L (3.5-5.1)
[2021-12-20] MEDS: atenoloL 25 MG TAB PO SCH (09:40)
[2021-12-20] MEDS: ASPIRIN 81 MG PO SCH (09:40)
[2021-12-20] MEDS: CLOPIDOGREL 75 MG TAB PO SCH (09:40)
[2021-12-20] MEDS: lisinopriL 10 MG TAB PO SCH ×2 (09:40→20:23)
[2021-12-20] MEDS: HEPARIN SODIUM,PORCINE/PF 5,000 UNIT/0.5 ML SYRINGE SQ SCH ×2 (09:41→20:23)
[2021-12-20] MEDS: BRIMONIDINE TARTRATE 0.2% DROPS 5 ML BTL BOTH EYES SCH ×2 (09:41→20:24)
[2021-12-20] MEDS: TIMOLOL 0.5% OPHTH DROPS 5 ML BTL BOTH EYES SCH ×2 (09:42→20:24)
--- NOTE | 2021-12-20 09:50 | P.NPCON ---
History of Present Illness - Reason for Consult Consult date: 12/20/21 hyponatremia - Chief Complaint Syncope and hyponatremia - History of Present Illness This is a 81-year-old female seen in consultation because of severe hyponatremia, sodium was 113, she also had a brief episode of syncope maybe twice on 12/17/2021 2 days prior to admission she had just gotten out of the commode at the time. She denies any postural dizziness but feels dizzy at times since her stroke. Previously Her sodium was 136 on 11/28/2021 when she was admitted with a transient left CVA. She was released from the hospital on 12/01/2021. Subsequent to this she saw her physician on 12/03/2021 and had blood drawn no details available. She was not called by her primary physician with any results. She was started on hydrochlorothiazide on 12/16/2021 to 3 days prior to admission. She admits to drinking about 5-6 large glasses of water 1 bottle of Gatorade and about 2 cups of coffee. She says she is eating well. Previously though on 10/08/2021 she had seen her primary physician Dr. Dickey, and was told to drink Gatorade and adds salt to her meals because of low sodium. Details are not available. At the time she is not on any diuretics. Currently she is feeling well no complaints at all. No headache dizziness visual blurring. Weakness and shortness of breath chest pain fever chills no cough no pain or aches of any kind no nausea. No vomiting diarrhea Past Medical History Past Medical History: CVA/TIA, Hyperlipidemia, Hypertension Additional Past Medical History / Comment(s): pt. states she has right eye swelling and bleeding and gets injections in that eye History of Any Multi-Drug Resistant Organisms: None Reported Past Surgical History: Hysterectomy Past Anesthesia/Blood Transfusion Reactions: No Reported Reaction Past Psychological History: No Psychological Hx Reported Smoking Status: Never smoker Past Alcohol Use History: None Reported Past Drug Use History: None Reported Medications and Allergies Home Medications Medication Instructions Recorded Confirmed Type Brimonidine Tartrate [Alphagan P 1 drops BOTH EYES BID 11/28/21 12/19/21 History 0.2% Ophth Soln] Dorzolamide HCl/Pf [Dorzolamide 2% 1 drop BOTH EYES BID 11/28/21 12/19/21 History Eye Drop] Latanoprost/Pf [Latanoprost 0.005% 1 drop BOTH EYES HS 11/28/21 12/19/21 History Eye Drop] Timolol 0.5% Ophth Soln [Timoptic 1 drop BOTH EYES BID 11/28/21 12/19/21 History 0.5% Ophth Soln] atenoloL [Tenormin] 25 mg PO DAILY 11/28/21 12/19/21 History Aspirin 81 mg PO DAILY #21 tab 12/01/21 12/19/21 Rx Atorvastatin [Lipitor] 80 mg PO HS #30 tab 12/01/21 12/19/21 Rx Clopidogrel [Plavix] 75 mg PO DAILY 30 Days #30 tab 12/01/21 12/19/21 Rx Famotidine [Pepcid] 20 mg PO HS #30 tab 12/01/21 12/19/21 Rx lisinopriL [Zestril] 10 mg PO BID #60 tab 12/01/21 12/19/21 Rx hydroCHLOROthiazide 25 mg PO DAILY 12/19/21 12/19/21 History Allergies Allergy/AdvReac Type Severity Reaction Status Date / Time No Known Allergies Allergy Verified 12/19/21 19:31 Physical Exam Vitals: Vital Signs Temp Pulse Pulse Resp BP BP Pulse Ox 12/20/21 04:00 98.3 F 63 17 157/79 99 12/19/21 23:51 74 16 114/68 96 12/19/21 21:53 98.2 F 62 18 182/60 99 12/19/21 19:37 56 L 18 144/90 95 12/19/21 18:24 98 F 62 18 137/83 99 Intake and Output 12/19/21 12/20/21 12/20/21 22:59 06:59 14:59 Intake Total 360 Balance 360 Intake: Oral 360 Other: Voiding Method Toilet # Voids 2 Weight 57.606 kg On examination is awake alert oriented comfortable A chin exam no JVP neck is supple no facial asymmetry Lungs clear to auscultation good air entry bilaterally Heart sounds unremarkable no murmur rub gallop Abdomen soft nontender Extremity exam was no edema Neurologically awake alert oriented. No evidence of any weakness on her left side in the previous transient left-sided stroke on 11/28/2021 Results - Lab Results Most recent lab results Calcium 8.8 mg/dL (8.4-10.2) 12/20/21 07:31 Magnesium 1.6 mg/dL (1.6-2.3) 12/19/21 19:07 12/19/21 19:07 12/20/21 07:31 Assessment and Plan Plan: Impression 1. Severe hyponatremia, sodium 113, creatinine 0.86, glucose 113. Etiology possibly related to hydrochlorothiazide although she was started on it only 3 days prior to admission. Additionally she has history of having hyponatremia on 10/08/2081 at her primary physician's office of the details of that left side not available. So this may not be related to hydrochlorothiazide. 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 Ruled out hypothyroidism ( TSH, recent TSH was 6.7 slightly high on 11/28/2021 and a free T4 was 1.47 which is within normal range ). Improved with normal saline, sodium is 121 2. Syncopal episode rule out any cardiovascular event the patient claims that her pressures at home are high not low. 3. Recent transient CVA left side 11/29/2019 to complete resolution 4. Hypertension controlled. Recommendation 1. Check orthostatic changes 2. Obtain TSH and free T4 3. Will DC IV normal saline 4. Redo labs in 4 hours. Thank you for this consultation and will continue to follow closely
--- NOTE | 2021-12-20 10:06 | P.HPIM ---
History of Present Illness This is a pleasant 72 years old female who was recently discharged from this facility on 12/01 for large acute occipital stroke with mild left hemiparesis, she's been evaluated by neurologist and discharge on aspirin and Plavix for 21 days and then to stop aspirin and continue with Plavix. Then stop aspirin on 12/23 and continue with Plavix thereafter. She was almost back to her baseline prior to discharge last time. Also she is planned to have an event monitor by [employer] flatbed driver upon discharge. Patient presents with dizziness and recurrent syncope. Patient states that she's been feeling dizzy times one day so she decided to come to the hospital. Her dizziness is nonspecific and she denies vertigo or presyncope. However patient passed out 3 days ago 2, for 1-2 minutes without confusion or urine or bowel incontinence, no seizure-like activity. She felt a little dizzy at that time. She denies chest pain or dyspnea or coughing. No abdominal pain or urinary complaints. No headache or weakness or numbness. Her left hemiparesis to the last admission his completely resolved and she's been taking her medication. She started her hydrochlorothiazide when she saw Dr. Lehman few days ago. Patient states that she did her event monitor Vitals looks stable. CBC is unremarkable. INR 0.9. Sodium on admission was 113 compared to 136 upon last admission. He went up to 117, 115 and 117. Rest of BMP and liver enzymes are unremarkable. Troponin is negative. EKG showing sinus bradycardia at [address]-T changes. QTC 434. on admission she received 2 L of normal saline and emergency room and nephrology team was consulted Review of Systems Review of systems CONSTITUTIONAL: No fever, no malaise, no fatigue. HEENT: No recent visual problems or hearing problems. Denied any sore throat. CARDIOVASCULAR: No orthopnea, PND, no palpitations, no syncope. PULMONARY: No shortness of breath, no cough, no hemoptysis. GASTROINTESTINAL: No diarrhea, no nausea, no vomiting, no abdominal pain. Normoactive bowel sounds. NEUROLOGICAL: No headaches, no weakness, no numbness. HEMATOLOGICAL: Denies any bleeding or petechiae. GENITOURINARY: Denies any burning micturition, frequency, or urgency. MUSCULOSKELETAL/RHEUMATOLOGICAL: Denies any joint pain, swelling, or any muscle pain. ENDOCRINE: Denies any polyuria or polydipsia. Past Medical History Past Medical History: CVA/TIA, Hyperlipidemia, Hypertension Additional Past Medical History / Comment(s): pt. states she has right eye swelling and bleeding and gets injections in that eye History of Any Multi-Drug Resistant Organisms: None Reported Past Surgical History: Hysterectomy Past Anesthesia/Blood Transfusion Reactions: No Reported Reaction Past Psychological History: No Psychological Hx Reported Smoking Status: Never smoker Past Alcohol Use History: None Reported Past Drug Use History: None Reported Medications and Allergies Home Medications Medication Instructions Recorded Confirmed Type Brimonidine Tartrate [Alphagan P 1 drops BOTH EYES BID 11/28/21 12/19/21 History 0.2% Ophth Soln] Dorzolamide HCl/Pf [Dorzolamide 2% 1 drop BOTH EYES BID 11/28/21 12/19/21 History Eye Drop] Latanoprost/Pf [Latanoprost 0.005% 1 drop BOTH EYES HS 11/28/21 12/19/21 History Eye Drop] Timolol 0.5% Ophth Soln [Timoptic 1 drop BOTH EYES BID 11/28/21 12/19/21 History 0.5% Ophth Soln] atenoloL [Tenormin] 25 mg PO DAILY 11/28/21 12/19/21 History Aspirin 81 mg PO DAILY #21 tab 12/01/21 12/19/21 Rx Atorvastatin [Lipitor] 80 mg PO HS #30 tab 12/01/21 12/19/21 Rx Clopidogrel [Plavix] 75 mg PO DAILY 30 Days #30 tab 12/01/21 12/19/21 Rx Famotidine [Pepcid] 20 mg PO HS #30 tab 12/01/21 12/19/21 Rx lisinopriL [Zestril] 10 mg PO BID #60 tab 12/01/21 12/19/21 Rx hydroCHLOROthiazide 25 mg PO DAILY 12/19/21 12/19/21 History Allergies Allergy/AdvReac Type Severity Reaction Status Date / Time No Known Allergies Allergy Verified 12/19/21 19:31 Physical Exam Vitals: Vital Signs Temp Pulse Pulse Resp BP BP Pulse Ox 12/20/21 04:00 98.3 F 63 17 157/79 99 12/19/21 23:51 74 16 114/68 96 12/19/21 21:53 98.2 F 62 18 182/60 99 12/19/21 19:37 56 L 18 144/90 95 12/19/21 18:24 98 F 62 18 137/83 99 Intake and Output 12/19/21 12/20/21 12/20/21 22:59 06:59 14:59 Other: Voiding Method Toilet # Voids 2 Weight 57.606 kg GENERAL: The patient is alert and oriented x3, not in any acute distress. Well developed, well nourished. HEENT: Pupils are round and equally reacting to light. EOMI. No scleral icterus. No conjunctival pallor. Normocephalic, atraumatic. No pharyngeal erythema. No thyromegaly. CARDIOVASCULAR: S1 and S2 present. No murmurs, rubs, or gallops. PULMONARY: Chest is clear to auscultation, no wheezing or crackles. ABDOMEN: Soft, nontender, nondistended, normoactive bowel sounds. No palpable organomegaly. MUSCULOSKELETAL: No joint swelling or deformity. EXTREMITIES: No cyanosis, clubbing, or pedal edema. NEUROLOGICAL: Gross neurological examination did not reveal any focal deficits. SKIN: No rashes. no petechiae. Results CBC & Chem 7: 12/19/21 19:07 12/20/21 07:31 Labs: Abnormal Lab Results - Last 24 Hours (Table) 12/19/21 12/19/21 12/19/21 Range/Units 19:07 19:07 20:35 APTT 20.9 L (22.0-30.0) sec Sodium 113 L* 117 L* (137-145) mmol/L Chloride 81 L 89 L (98-107) mmol/L Carbon Dioxide 21 L 20 L (22-30) mmol/L BUN 21 H 19 H (7-17) mg/dL Glucose 129 H 106 H (74-99) mg/dL Calcium 8.1 L (8.4-10.2) mg/dL AST 39 H (14-36) U/L 12/20/21 12/20/21 Range/Units 00:05 04:13 APTT (22.0-30.0) sec Sodium 115 L* 117 L* (137-145) mmol/L Chloride 88 L 89 L (98-107) mmol/L Carbon Dioxide 21 L (22-30) mmol/L BUN (7-17) mg/dL Glucose 106 H (74-99) mg/dL Calcium (8.4-10.2) mg/dL AST (14-36) U/L Thrombosis Risk Factor Assmnt - Choose All That Apply Any of the Below Risk Factors Present?: No Other Risk Factors: Yes Each Risk Factor Represents 3 Points: Age 75 years or older Each Risk Factor Represents 5 Points: Stroke (< 1 month) Thrombosis Risk Factor Assessment Total Risk Factor Score: 8 Thrombosis Risk Factor Assessment Level: High Risk Assessment and Plan Assessment: Severe hyponatremia present on admission. Syncope secondary to above, rule out cardiac causes Recent Left hemiparesis secondary to acute stroke, Large acute right occipital infarct Hypertension Hyperlipidemia Plan: This is a pleasant 81 years old female who presents with hyponatremia and syncope. Patient had recent stroke. Continue with telemetry monitoring Keep on its and sodium closely, we recommend slow correction and for this purpose nephrology team was consulted. For now we are comment that restriction and monitor symptoms closely, no IV fluids was started. Recommend fluid restriction for now or as per sales and marketing executive Check urine studies and serum osmolality Check orthostatic vitals. Cardiology consult Discontinue hydrochlorothiazide, patient was instructed for the same and she agrees Her stroke symptoms still resolved Labs and medication were reviewed.. Continue same treatment. Continue with symptomatic treatment. Resume home medication. Monitor lytes and vitals. DVT and GI prophylaxis. Further recommendationsas per clinical course of the patient DVT prophylaxis: Subcutaneous heparin GI Prophylaxis: Pepcid PT/OT: Pending Prognosis is guarded
[2021-12-20 12:39] LABS: Calcium 8.7 mg/dL (8.4-10.2)
[2021-12-20] MEDS: DORZOLAMIDE HCL 2% DROPS 10 ML BTL BOTH EYES SCH ×2 (14:33→20:24)
[2021-12-20 16:24] LABS: Calcium 8.5 mg/dL (8.4-10.2); Potassium 3.9 mmol/L (3.5-5.1)
[2021-12-20] MEDS: ATORVASTATIN 80 MG TAB PO SCH (20:23)
[2021-12-20] MEDS: TEMAZEPAM 15 MG CAP PO PRN (20:23)
[2021-12-20] MEDS: FAMOTIDINE 20 MG TAB PO SCH (20:23)
[2021-12-20] MEDS: LATANOPROST 0.005% OPHTH DROPS 2.5 ML BTL BOTH EYES SCH (20:24)
[2021-12-21 08:03] LABS: Basophils % (A) 1 %; Eosinophils # (A) 0.1 k/uL (0-0.7); Eosinophils % (A) 3 %; HCT 38.7 % (34.0-46.0); HGB 12.7 gm/dL (11.4-16.0); Lymphocytes # (A) 0.8 k/uL (1.0-4.8); Lymphocytes % (A) 19 %; MCH 30.2 pg (25.0-35.0); MCHC 32.8 g/dL (31.0-37.0); MCV 92.1 fL (80.0-100.0); Mean Platelet Volume 8.2; Monocytes # (A) 0.3 k/uL (0-1.0); Monocytes % (A) 8 %; Neutrophils # (A) 3.1 k/uL (1.3-7.7); Neutrophils % (A) 68 %; Platelet Count 190 k/uL (150-450); RBC 4.21 m/uL (3.80-5.40); RDW 12.5 % (11.5-15.5); WBC 4.5 k/uL (3.8-10.6)
[2021-12-21 08:16] LABS: Calcium 8.7 mg/dL (8.4-10.2); Magnesium 1.9 mg/dL (1.6-2.3); Potassium 4.1 mmol/L (3.5-5.1)
[2021-12-21] MEDS ORDERED: lisinopriL 10 MG TAB PO SCH ×2 (09:00)
[2021-12-21] MEDS: atenoloL 25 MG TAB PO SCH (09:58)
[2021-12-21] MEDS: CLOPIDOGREL 75 MG TAB PO SCH (09:58)
[2021-12-21] MEDS: ASPIRIN 81 MG PO SCH (09:58)
[2021-12-21] MEDS: HEPARIN SODIUM,PORCINE/PF 5,000 UNIT/0.5 ML SYRINGE SQ SCH ×2 (09:59→20:17)
[2021-12-21] MEDS ORDERED: DEXTROSE 5% IN WATER 1,000 ML IV SCH (10:00)
[2021-12-21] MEDS: TIMOLOL 0.5% OPHTH DROPS 5 ML BTL BOTH EYES SCH ×2 (10:06→20:18)
[2021-12-21] MEDS: BRIMONIDINE TARTRATE 0.2% DROPS 5 ML BTL BOTH EYES SCH ×2 (10:06→20:17)
[2021-12-21] MEDS: DORZOLAMIDE HCL 2% DROPS 10 ML BTL BOTH EYES SCH ×2 (10:07→20:17)
--- NOTE | 2021-12-21 10:34 | P.PN ---
Subjective Patient is seen in follow-up for hyponatremia. Sodium level 128today. Currently off IV fluids. Oral intake is fair. Denies vomiting or diarrhea. GFR at baseline Vital signs are stable. General: Awake. No acute distress. HEENT: Head exam is unremarkable. LUNGS: Breath sounds decreased. HEART: Rate and Rhythm are regular. ABDOMEN: Soft, no distention. EXTREMITITES: No edema. Objective - Vital Signs Vital signs: Vital Signs Temp 97.9 F 12/20/21 20:00 Pulse 58 L 12/21/21 03:56 Resp 16 12/21/21 03:56 BP 116/67 12/21/21 03:56 Pulse Ox 98 12/21/21 03:56 FiO2 Intake & Output 12/20/21 12/21/21 12/21/21 18:59 06:59 18:59 Intake Total 600 240 118 Output Total 375 800 800 Balance 465 -269 -437 Intake: Oral 600 240 118 Output: Urine 375 800 800 Other: Voiding Method Toilet # Voids 1 # Bowel Movements 1 0 - Labs CBC & Chem 7: 12/21/21 07:32 12/21/21 07:32 Labs: Abnormal Lab Results - Last 24 Hours (Table) 12/20/21 12/20/21 12/20/21 Range/Units 12:09 16:02 17:00 Lymphocytes # (1.0-4.8) k/uL Sodium 123 L 124 L (137-145) mmol/L Chloride 92 L 92 L (98-107) mmol/L BUN 18 H 19 H (7-17) mg/dL Glucose 108 H 101 H (74-99) mg/dL Ur Random Sodium 35 L (40-220) mmol/L 12/21/21 12/21/21 Range/Units 07:32 07:32 Lymphocytes # 0.8 L (1.0-4.8) k/uL Sodium 128 L (137-145) mmol/L Chloride (98-107) mmol/L BUN (7-17) mg/dL Glucose (74-99) mg/dL Ur Random Sodium (40-220) mmol/L Assessment and Plan Plan: Assessment: 1. Hyponatremia. Hypovolemic and further worsened with the use of thiazide diuretic and poor solute intake. Urine sodium 35 and urine osmolality 195. Sodium level was 113 on admission on 12/19/2021 at 7:07 PM and is 128 this morning. 2. Benign hypertension. Blood pressure on the lower side. 3. Recent CVA. Plan: Start D5W at 50 mL an hour. Recheck sodium level in 3 hours. Check TSH. Encourage oral intake, particularly protein. Decrease lisinopril to 10 mg once daily. Hold for systolic blood pressure less than 120.
--- NOTE | 2021-12-21 11:49 | P.CRDCN ---
History of Present Illness Consult date: 12/21/21 History of present illness: HISTORY OF PRESENT ILLNESS: This is a 81-year-old female with a past medical history significant for hypertension, hyperlipidemia, and recent diagnosis of CVA. Patient follows in the office with Dr. Lehman. We have been asked to see the patient in consultation for syncope. Patient examined at the bedside. Patient states that on Tuesday and Tuesday she was feeling dizzy. She states over the weekend she got up to the use the bathroom and passed out. She denied any chest pain or pressure. Denied SOB. She states her dizziness is only when she changes positions from laying/sitting to standing. The patient was found to be hyponatremic with a sodium level of 113. * EKG reveals sinus mechanism * Laboratory data: WBC 4.5. Hemoglobin 12.7. Platelet count 190. Sodium 128. Potassium 4.1. BUN 15. Creatinine 0.79. * Current home cardiac medications include aspirin 81 mg daily, Lipitor 80 mg at night, Plavix 75 mg daily, atenolol 25 mg daily, hydrochlorothiazide 25 mg daily, and lisinopril 10 mg twice a day * Most recent echocardiogram obtained in November 2021 revealed ejection fraction 55-60% REVIEW OF SYSTEMS: At the time of my exam: CONSTITUTIONAL: Denies fever or chills. HEENT: Denies blurred vision, vision changes, or eye pain. Denies hemoptysis CARDIOVASCULAR: Denies chest pain. Denies orthopnea. Denies PND. Denies palpitations RESPIRATORY: Denies shortness of breath. GASTROINTESTINAL: Denies abdominal pain. Denies nausea or vomiting. HEMATOLOGIC: Denies bleeding disorders. GENITOURINARY: Denies any blood in urine. SKIN: Denies pruitis. Denies rash. PHYSICAL EXAM: VITAL SIGNS: Reviewed. GENERAL: Well-developed in no acute distress. HEENT: Head is normocephalic. Pupils are equal, round. Sclerae anicteric. Mucous membranes of the mouth are moist. Neck supple. No JVD or thyromegaly LUNGS: Respirations even and unlabored. Lungs essentially clear to auscultation bilaterally. HEART: Regular rate and rhythm. S1 and S2 heard. ABDOMEN: Soft. Nondistended. Nontender. EXTREMITIES: Normal range of motion. No clubbing or cyanosis. Peripheral pulses intact. No lower extremity edema NEUROLOGIC: Awake and alert. Oriented x 3. ASSESSMENT: Syncope Hyponatremia Hypertension Hyperlipidemia Recent diagnosis of CVA PLAN: No need to repeat echocardiogram as this was performed in November 2021 Continue to hold hydrochlorothiazide. Do not resume at discharge Continue atenolol and lisinopril at this time Continue to monitor blood pressure Continue telemetry monitoring Further recommendations pending patient's course Nurse practitioner note has been reviewed by physician. Signing provider agrees with the documented findings, assessment, and plan of care. Past Medical History Past Medical History: CVA/TIA, Hyperlipidemia, Hypertension Additional Past Medical History / Comment(s): pt. states she has right eye swelling and bleeding and gets injections in that eye History of Any Multi-Drug Resistant Organisms: None Reported Past Surgical History: Hysterectomy Past Anesthesia/Blood Transfusion Reactions: No Reported Reaction Past Psychological History: No Psychological Hx Reported Smoking Status: Never smoker Past Alcohol Use History: None Reported Past Drug Use History: None Reported Medications and Allergies Home Medications Medication Instructions Recorded Confirmed Type Brimonidine Tartrate [Alphagan P 1 drops BOTH EYES BID 11/28/21 12/19/21 History 0.2% Ophth Soln] Dorzolamide HCl/Pf [Dorzolamide 2% 1 drop BOTH EYES BID 11/28/21 12/19/21 History Eye Drop] Latanoprost/Pf [Latanoprost 0.005% 1 drop BOTH EYES HS 11/28/21 12/19/21 History Eye Drop] Timolol 0.5% Ophth Soln [Timoptic 1 drop BOTH EYES BID 11/28/21 12/19/21 History 0.5% Ophth Soln] atenoloL [Tenormin] 25 mg PO DAILY 11/28/21 12/19/21 History Aspirin 81 mg PO DAILY #21 tab 12/01/21 12/19/21 Rx Atorvastatin [Lipitor] 80 mg PO HS #30 tab 12/01/21 12/19/21 Rx Clopidogrel [Plavix] 75 mg PO DAILY 30 Days #30 tab 12/01/21 12/19/21 Rx Famotidine [Pepcid] 20 mg PO HS #30 tab 12/01/21 12/19/21 Rx lisinopriL [Zestril] 10 mg PO BID #60 tab 12/01/21 12/19/21 Rx hydroCHLOROthiazide 25 mg PO DAILY 12/19/21 12/19/21 History Allergies Allergy/AdvReac Type Severity Reaction Status Date / Time No Known Allergies Allergy Verified 12/19/21 19:31 Physical Exam Vitals: Vital Signs Temp Pulse Pulse Pulse Resp BP BP 12/21/21 03:56 58 L 16 116/67 12/20/21 23:51 58 L 18 99/63 12/20/21 20:00 97.9 F 61 16 136/80 12/20/21 15:55 97.8 F 60 16 153/83 12/20/21 12:10 84 142/71 12/20/21 12:05 71 154/73 12/20/21 12:00 97.8 F 66 18 BP Pulse Ox 12/21/21 03:56 98 12/20/21 23:51 95 12/20/21 20:00 100 12/20/21 15:55 96 12/20/21 12:10 95 12/20/21 12:05 99 12/20/21 12:00 169/90 99 Intake and Output 12/20/21 12/21/21 12/21/21 22:59 06:59 14:59 Intake Total 240 118 Output Total 1175 800 Balance -995 -597 Intake: Oral 240 118 Output: Urine 1175 800 Other: # Bowel Movements 0 Results 12/21/21 07:32 12/21/21 07:32 CBC 12/21/21 Range/Units 07:32 WBC 4.5 (3.8-10.6) k/uL RBC 4.21 (3.80-5.40) m/uL Hgb 12.7 (11.4-16.0) gm/dL Hct 38.7 (34.0-46.0) % Plt Count 190 (150-450) k/uL Comprehensive Metabolic Panel 12/20/21 12/20/21 12/21/21 Range/Units 12:09 16:02 07:32 Sodium 123 L 124 L 128 L (137-145) mmol/L Potassium 4.0 3.9 4.1 (3.5-5.1) mmol/L Chloride 92 L 92 L 100 (98-107) mmol/L Carbon Dioxide 23 26 23 (22-30) mmol/L BUN 18 H 19 H 15 (7-17) mg/dL Creatinine 0.84 0.85 0.79 (0.52-1.04) mg/dL Glucose 108 H 101 H 95 (74-99) mg/dL Calcium 8.7 8.5 8.7 (8.4-10.2) mg/dL Current Medications Generic Name Dose Route Start Last Admin Trade Name Freq PRN Reason Stop Dose Admin Acetaminophen 650 mg 12/19/21 20:07 Acetaminophen Tab 325 Mg Tab PO Q6HR PRN Mild Pain or Fever > 100.5 Aspirin 81 mg 12/20/21 09:00 12/21/21 09:58 Aspirin 81 Mg PO 81 mg DAILY RODRIGO Administration Atenolol 25 mg 12/20/21 09:00 12/21/21 09:58 Atenolol 25 Mg Tab PO 25 mg DAILY RODRIGO Administration Atorvastatin Calcium 80 mg 12/20/21 21:00 12/20/21 20:23 Atorvastatin 80 Mg Tab PO 80 mg HS RODRIGO Administration Brimonidine Tartrate 1 drops 12/20/21 09:00 12/21/21 10:06 Brimonidine Tartrate 0.2% Drops 5 Ml Btl BOTH EYES 1 drops BID RODRIGO Administration Clopidogrel Bisulfate 75 mg 12/20/21 09:00 12/21/21 09:58 Clopidogrel 75 Mg Tab PO 75 mg DAILY RODRIGO Administration Dorzolamide HCl 1 drops 12/20/21 12:15 12/21/21 10:07 Dorzolamide Hcl 2% Drops 10 Ml Btl BOTH EYES 1 drops BID RODRIGO Administration Famotidine 20 mg 12/20/21 21:00 12/20/21 20:23 Famotidine 20 Mg Tab PO 20 mg HS RODRIGO Administration Heparin Sodium (Porcine) 5,000 unit 12/20/21 09:00 12/21/21 09:59 Heparin Sodium,Porcine/Pf 5,000 Unit/0.5 Ml Syringe SQ 5,000 unit Q12HR RODRIGO Administration Dextrose/Water 1,000 mls @ 50 mls/hr 12/21/21 10:00 12/21/21 10:07 Dextrose 5%-Water Iv Soln IV 50 mls/hr .Q20H RODRIGO Administration Latanoprost 1 drops 12/20/21 21:00 12/20/21 20:24 Latanoprost 0.005% Ophth Drops 2.5 Ml Btl BOTH EYES 1 drops HS RODRIGO Administration Lisinopril 10 mg 12/22/21 09:00 Lisinopril 10 Mg Tab PO DAILY RODRIGO Naloxone HCl 0.2 mg 12/19/21 20:07 Naloxone 0.4 Mg/Ml 1 Ml Vial IV Q2M PRN Opioid Reversal Temazepam 15 mg 12/19/21 22:07 12/20/21 20:23 Temazepam 15 Mg Cap PO 15 mg HS PRN Administration Insomnia Timolol Maleate 1 drops 12/20/21 09:00 12/21/21 10:06 Timolol 0.5% Ophth Drops 5 Ml Btl BOTH EYES 1 drops BID RODRIGO Administration Intake and Output 12/20/21 12/21/21 12/21/21 22:59 06:59 14:59 Intake Total 240 118 Output Total 1175 800 Balance -904 -500 Intake: Oral 240 118 Output: Urine 1175 800 Other: # Bowel Movements 0 12/21/21 07:32 12/21/21 07:32
--- NOTE | 2021-12-21 15:35 | P.PN ---
Subjective Progress Note Date: 12/21/21 This is a pleasant 72 years old female who was recently discharged from this facility on 12/01 for large acute occipital stroke with mild left hemiparesis, she's been evaluated by neurologist and discharge on aspirin and Plavix for 21 days and then to stop aspirin and continue with Plavix. Then stop aspirin on 12/23 and continue with Plavix thereafter. She was almost back to her baseline prior to discharge last time. Also she is planned to have an event monitor by painter and paperhanger apprentice upon discharge. Patient presents with dizziness and recurrent syncope. Patient states that she's been feeling dizzy times one day so she decided to come to the hospital. Her dizziness is nonspecific and she denies vertigo or presyncope. However patient passed out 3 days ago 2, for 1-2 minutes without confusion or urine or bowel incontinence, no seizure-like activity. She felt a little dizzy at that time. She denies chest pain or dyspnea or coughing. No abdominal pain or urinary complaints. No headache or weakness or numbness. Her left hemiparesis to the last admission his completely resolved and she's been taking her medication. She started her hydrochlorothiazide when she saw Dr. Lehman few days ago. Parvin ent states that she did her event monitor Vitals looks stable. CBC is unremarkable. INR 0.9. Sodium on admission was 113 compared to 136 upon last admission. He went up to 117, 115 and 117. Rest of BMP and liver enzymes are unremarkable. Troponin is negative. EKG showing sinus bradycardia at [address]-T changes. QTC 434. on admission she received 2 L of normal saline and emergency room and nephrology team was consulted 12/21/2021 Patient evaluated today ambulating in the room. She states dizziness has improved. Sodium level today is 128 patient is an started on D5W to run for 3 hours and then discontinue. We will repeat sodium level the morning and possible discharge tomorrow. She is being followed closely by nephrology. She is also given a by cardiology today with no plans to repeat echocardiogram patient will continue on atenolol and lisinopril. Discontinue hydrochlorothiazide on discharge as well. Otherwise, no acute events overnight. BUN 15, creatinine 0.79. Blood pressure is 126/73, 93% room air, heart rate 59, afebrile. Review of Systems Constitutional: Denied any fatigue denied any fever. Cardio vascular: denied any chest pain, palpitations Gastrointestinal: denied any nausea, vomiting, diarrhea Pulmonary: Denied any shortness of breath cough Neurologic denied any new focal deficits All inpatient medications were reviewed and appropriate changes in these medications as dictated in the interval history and assessment and plan. PHYSICAL EXAMINATION: GENERAL: The patient is alert and oriented x3, not in any acute distress. Well developed, well nourished. HEENT: Pupils are round and equally reacting to light. EOMI. No scleral icterus. No conjunctival pallor. Normocephalic, atraumatic. No pharyngeal erythema. No thyromegaly. CARDIOVASCULAR: S1 and S2 present. No murmurs, rubs, or gallops. PULMONARY: Chest is clear to auscultation, no wheezing or crackles. ABDOMEN: Soft, nontender, nondistended, normoactive bowel sounds. No palpable organomegaly. MUSCULOSKELETAL: No joint swelling or deformity. EXTREMITIES: No cyanosis, clubbing, or pedal edema. NEUROLOGICAL: Gross neurological examination did not reveal any focal deficits. SKIN: No rashes. Assessment and plan Assessment Severe hyponatremia present on admission secondary to diuresis from hydrochlorothiazide Syncope secondary to above Recent Left hemiparesis secondary to acute stroke, Large acute right occipital infarct Hypertension Hyperlipidemia GI Prophylaxis DVT Prophylaxis Do Not Resuscitate Plan Repeat sodium level this afternoon Repeat sodium level in the morning Patient is being followed by cardiology, nephrology Possible discharge in the next 24 hours The impression and plan of care has been dictated by Vivi Woods, Nurse Practitioner as directed. Dr. Mallorie MD I have performed a history and physical examination and medical decision making of this patient, discussed the same with the dictator, and agree with the dictators assessment and plan as written, documented as a scribe. Based on total visit time, I have performed more than 50% of this visit. Objective - Vital Signs Vital signs: Vital Signs Temp 97.9 F 12/20/21 20:00 Pulse 58 L 12/21/21 03:56 Resp 16 12/21/21 03:56 BP 116/67 12/21/21 03:56 Pulse Ox 98 12/21/21 03:56 FiO2 Intake & Output 12/20/21 12/21/21 12/21/21 18:59 06:59 18:59 Intake Total 600 240 118 Output Total 375 800 800 Balance 747 -101 -037 Intake: Oral 600 240 118 Output: Urine 375 800 800 Other: Voiding Method Toilet # Voids 1 # Bowel Movements 1 0 - Labs CBC & Chem 7: 12/21/21 07:32 12/21/21 12:55 Labs: Abnormal Lab Results - Last 24 Hours (Table) 12/20/21 12/20/21 12/20/21 Range/Units 12:09 16:02 17:00 Lymphocytes # (1.0-4.8) k/uL Sodium 123 L 124 L (137-145) mmol/L Chloride 92 L 92 L (98-107) mmol/L BUN 18 H 19 H (7-17) mg/dL Glucose 108 H 101 H (74-99) mg/dL Ur Random Sodium 35 L (40-220) mmol/L 12/21/21 12/21/21 Range/Units 07:32 07:32 Lymphocytes # 0.8 L (1.0-4.8) k/uL Sodium 128 L (137-145) mmol/L Chloride (98-107) mmol/L BUN (7-17) mg/dL Glucose (74-99) mg/dL Ur Random Sodium (40-220) mmol/L Assessment and Plan Time with Patient: Less than 30
[2021-12-21] MEDS: TEMAZEPAM 15 MG CAP PO PRN (20:17)
[2021-12-21] MEDS: FAMOTIDINE 20 MG TAB PO SCH (20:17)
[2021-12-21] MEDS: ATORVASTATIN 80 MG TAB PO SCH (20:17)
[2021-12-21] MEDS: LATANOPROST 0.005% OPHTH DROPS 2.5 ML BTL BOTH EYES SCH (20:17)
[2021-12-21 23:51] VITALS: RESP 17
[2021-12-22 07:48] VITALS: BP 158/89; TEMP 97.4
[2021-12-22 08:52] LABS: Potassium 4.3 mmol/L (3.5-5.1)
[2021-12-22] MEDS ORDERED: atenoloL 25 MG TAB PO SCH (09:00)
[2021-12-22] MEDS ORDERED: lisinopriL 10 MG TAB PO SCH (09:00)
[2021-12-22] MEDS: ASPIRIN 81 MG PO SCH (09:56)
[2021-12-22] MEDS: CLOPIDOGREL 75 MG TAB PO SCH (09:56)
[2021-12-22] MEDS: HEPARIN SODIUM,PORCINE/PF 5,000 UNIT/0.5 ML SYRINGE SQ SCH (09:56)
[2021-12-22] MEDS: DORZOLAMIDE HCL 2% DROPS 10 ML BTL BOTH EYES SCH (09:57)
[2021-12-22] MEDS: BRIMONIDINE TARTRATE 0.2% DROPS 5 ML BTL BOTH EYES SCH (09:57)
[2021-12-22] MEDS: TIMOLOL 0.5% OPHTH DROPS 5 ML BTL BOTH EYES SCH (09:57)
--- NOTE | 2021-12-22 12:26 | P.PN ---
Subjective Patient is doing well. No chest discomfort dizziness lightheadedness No palpitations Yesterday we had stopped hydrochlorothiazide and continue all other medications DM increasing the dose of atenolol to 25 mg twice daily Will watch her blood pressure on this Continue all other cardiac medications Objective - Vital Signs Vital signs: Vital Signs Temp 97.4 F L 12/22/21 07:47 Pulse 69 12/22/21 07:47 Resp 17 12/22/21 07:47 BP 158/89 12/22/21 07:47 Pulse Ox 99 12/22/21 07:47 FiO2 Intake & Output 12/21/21 12/22/21 12/22/21 18:59 06:59 18:59 Intake Total 354 118 Output Total 1100 400 600 Balance -856 -400 -592 Intake: Oral 354 118 Output: Urine 1100 400 600 Other: Voiding Method Toilet Toilet # Bowel Movements 1 - Labs CBC & Chem 7: 12/21/21 07:32 12/22/21 08:31 Labs: Abnormal Lab Results - Last 24 Hours (Table) 12/20/21 12/21/21 Range/Units 17:00 12:55 Sodium 126 L (137-145) mmol/L Ur Random Sodium 35 L (40-220) mmol/L
[2021-12-22 12:44] VITALS: PULSE 64
--- NOTE | 2021-12-22 13:56 | P.PN ---
Subjective Patient is seen in follow-up for hyponatremia. Sodium level 130 today. Currently off IV fluids. Oral intake is fair. Denies vomiting or diarrhea. GFR at baseline. No active complaints. Vital signs are stable. General: Awake. No acute distress. HEENT: Head exam is unremarkable. LUNGS: Breath sounds decreased. HEART: Rate and Rhythm are regular. ABDOMEN: Soft, no distention. EXTREMITITES: No edema. Objective - Vital Signs Vital signs: Vital Signs Temp 97.4 F L 12/22/21 07:47 Pulse 64 12/22/21 08:00 Resp 17 12/22/21 08:00 BP 158/89 12/22/21 07:47 Pulse Ox 99 12/22/21 07:47 FiO2 Intake & Output 12/21/21 12/22/21 12/22/21 18:59 06:59 18:59 Intake Total 354 236 Output Total 1100 400 600 Balance -746 -400 -364 Intake: Oral 354 236 Output: Urine 1100 400 600 Other: Voiding Method Toilet Toilet Toilet # Bowel Movements 1 - Labs CBC & Chem 7: 12/21/21 07:32 12/22/21 08:31 Labs: Abnormal Lab Results - Last 24 Hours (Table) 12/22/21 Range/Units 08:31 Sodium 130 L (137-145) mmol/L Glucose 120 H (74-99) mg/dL Assessment and Plan Plan: Assessment: 1. Hyponatremia. Hypovolemic and further worsened with the use of thiazide diuretic and poor solute intake. Urine sodium 35 and urine osmolality 195. Sodium level 130. TSH normal. 2. Benign hypertension. Stable. 3. Recent CVA. Plan: Encourage oral intake, particularly protein. Maintain lisinopril. Advised to monitor blood pressure at home. To increase lisinopril to 20 mg daily for blood pressure staying above 150/90. Avoid thiazide diuretics. Repeat BMP and magnesium level 2-3 days postdischarge. Follow up outpatient in 1 week.
--- NOTE | 2021-12-22 23:27 | P.DS ---
Providers Date of admission: 12/19/21 20:07 Attending physician: Nancy Parra Consults: 12/19/21 19:59 Consult Physician Routine Consulting Provider: Blake Guerra Consult Reason/Comments: hyponatremia Do you want consulting provider notified?: Yes 12/20/21 10:04 Consult Physician Urgent Consulting Provider: Krish Daniel Consult Reason/Comments: Syncope Do you want consulting provider notified?: Yes Primary care physician: Lucille Dickey Hospital Course: Diagnosis Severe hyponatremia present on admission secondary to diuresis from hydrochlorothiazide Syncope secondary to above Recent Left hemiparesis secondary to acute stroke, Large acute right occipital infarct Hypertension Hyperlipidemia Do Not Resuscitate Discharge disposition Patient is discharged in stable condition. Recommended to repeat sodium in 2 days outpatient. Discontinue hydrochlorothiazide. Monitor blood pressure and keep log for follow up, Monitor for dizziness/lightheadedness. Patient will follow up with her sap data analyst outpatient as previously scheduled and will also follow up with nephrology in the office. Hospital course This is a pleasant 72 years old female who was recently discharged from this facility on 12/01 for large acute occipital stroke with mild left hemiparesis, she's been evaluated by neurologist and discharge on aspirin and Plavix for 21 days and then to stop aspirin and continue with Plavix. Then stop aspirin on 12/23 and continue with Plavix thereafter. She was almost back to her baseline prior to discharge last time. Also she is planned to have an event monitor by sap data analyst upon discharge. Patient presents with dizziness and recurrent syncope. Patient states that she's been feeling dizzy times one day so she decided to come to the hospital. Her dizziness is nonspecific and she denies vertigo or presyncope. However patient passed out 3 days ago 2, for 1-2 minutes without confusion or urine or bowel incontinence, no seizure-like activity. She felt a little dizzy at that time. She denies chest pain or dyspnea or coughing. No abdominal pain or urinary complaints. No headache or weakness or numbness. Her left hemiparesis to the last admission his completely resolved and she's been taking her medication. She started her hydrochlorothiazide when she saw Dr. Lehman few days ago. Patient has event monitor in place. She was found to have sodium on admission of 113 compared to 136 upon last admission. The sodium then went up to 117, 115 and 117. Rest of BMP and liver enzymes are unremarkable. Troponin is negative. CBC is unremarkable. EKG showing sinus bradycardia at [address]-T changes. QTC 434. On admission she received 2 L of normal saline and emergency room and nephrology team was consulted. Sodium then went up to 128 which was felt to be increased to much in a short time frame and nephrology treated patient with a short infusion of D5W. Sodium then came up to 126, and 130. She will be discharge and follow up with nephrology and cardiology outpatient. No further episodes of dizziness or lightheadedness. No chest pain no shortness of breath. 12/22/2021 Patient evaluated today ambulating in room. No acute events overnight. Labs today showing unremarkable blood count panel, sodium 130, BUN creatinine within normal limits. Her TSH was 3.520. Blood pressure 139/73, she has remained afebrile, heart rate 64, 99% room air. She will discharge on atenolol 25 mg PO BID and lisinopril has been decreased to daily. Discontinue hydrochlorothiazide. Continue all other home medications. Discharge recommendations as above. She is given script for repeat labs. Review of Systems Constitutional: Denied any fatigue denied any fever. Cardio vascular: denied any chest pain, palpitations Gastrointestinal: denied any nausea, vomiting, diarrhea Pulmonary: Denied any shortness of breath cough Neurologic denied any new focal deficits All inpatient medications were reviewed and appropriate changes in these medications as dictated in the interval history and assessment and plan. PHYSICAL EXAMINATION: GENERAL: The patient is alert and oriented x3, not in any acute distress. Well developed, well nourished. HEENT: Pupils are round and equally reacting to light. EOMI. No scleral icterus. No conjunctival pallor. Normocephalic, atraumatic. No pharyngeal erythema. No thyromegaly. CARDIOVASCULAR: S1 and S2 present. No murmurs, rubs, or gallops. PULMONARY: Chest is clear to auscultation, no wheezing or crackles. ABDOMEN: Soft, nontender, nondistended, normoactive bowel sounds. No palpable organomegaly. MUSCULOSKELETAL: No joint swelling or deformity. EXTREMITIES: No cyanosis, clubbing, or pedal edema. NEUROLOGICAL: Gross neurological examination did not reveal any focal deficits. SKIN: No rashes. Please see medication reconciliation for list of current medications. Thank you for allowing us participate in the care of this patient. Total time taken in discharge planning greater than 35 minutes The impression and plan of care has been dictated by Vivi Woods, Nurse Practitioner as directed. Dr. Mallorie MD I have performed a history and physical examination and medical decision making of this patient, discussed the same with the dictator, and agree with the dictators assessment and plan as written, documented as a scribe. Based on total visit time, I have performed more than 50% of this visit. Patient Condition at Discharge: Stable Plan - Discharge Summary Discharge Rx Participant: No New Discharge Prescriptions: New Clopidogrel [Plavix] 75 mg PO DAILY #30 tab atenoloL [Tenormin] 25 mg PO BID #60 tab lisinopriL [Zestril] 10 mg PO DAILY tab Continue Latanoprost/Pf [Latanoprost 0.005% Eye Drop] 1 drop BOTH EYES HS Dorzolamide HCl/Pf [Dorzolamide 2% Eye Drop] 1 drop BOTH EYES BID Clopidogrel [Plavix] 75 mg PO DAILY 30 Days #30 tab Timolol 0.5% Ophth Soln [Timoptic 0.5% Ophth Soln] 1 drop BOTH EYES BID Brimonidine Tartrate [Alphagan P 0.2% Ophth Soln] 1 drops BOTH EYES BID Aspirin 81 mg PO DAILY #21 tab Atorvastatin [Lipitor] 80 mg PO HS #30 tab Famotidine [Pepcid] 20 mg PO HS #30 tab Discontinued atenoloL [Tenormin] 25 mg PO DAILY hydroCHLOROthiazide 25 mg PO DAILY lisinopriL [Zestril] 10 mg PO BID #60 tab Discharge Medication List Brimonidine Tartrate [Alphagan P 0.2% Ophth Soln] 1 drops BOTH EYES BID 11/28/21 [History] Dorzolamide HCl/Pf [Dorzolamide 2% Eye Drop] 1 drop BOTH EYES BID 11/28/21 [History] Latanoprost/Pf [Latanoprost 0.005% Eye Drop] 1 drop BOTH EYES HS 11/28/21 [History] Timolol 0.5% Ophth Soln [Timoptic 0.5% Ophth Soln] 1 drop BOTH EYES BID 11/28/21 [History] Aspirin 81 mg PO DAILY #21 tab 12/01/21 [Rx] Atorvastatin [Lipitor] 80 mg PO HS #30 tab 12/01/21 [Rx] Clopidogrel [Plavix] 75 mg PO DAILY 30 Days #30 tab 12/01/21 [Rx] Famotidine [Pepcid] 20 mg PO HS #30 tab 12/01/21 [Rx] Clopidogrel [Plavix] 75 mg PO DAILY #30 tab 12/22/21 [Rx] atenoloL [Tenormin] 25 mg PO BID #60 tab 12/22/21 [Rx] lisinopriL [Zestril] 10 mg PO DAILY tab 12/22/21 [Rx] Follow up Appointment(s)/Referral(s): Krish Daniel MD [STAFF PHYSICIAN] - 01/19/22 [facility], [NON-STAFF] - As Needed Lucille Dickey MD [Primary Care Provider] - 12/31/21 Derek Lopez DO [STAFF PHYSICIAN] - 01/11/22 9:00 am (Appointment will be with catracho Everett NP) Ambulatory/Diagnostic Orders: Basic Metabolic Panel [LAB.AMB] Time Frame: 2 Days, Location: None Selected Patient Instructions/Handouts: Hyponatremia (DC) Activity/Diet/Wound Care/Special Instructions: Repeat sodium in 2 days outpatient Discontinue hydrochlorothiazide Monitor blood pressure and keep log for follow up Monitor for dizziness/lightheadedness Follow up with nephrology within 1 week Discharge Disposition: HOME SELF-CARE
== END 2021-12-22 15:24 | disposition home or self-care (01) | DRG 644 ==
LOC: EC 18:15 → 3SCARD 20:07
PROVIDERS: ADMIT Hospitalist; ATTEND Hospitalist
DX: E22.2 Syndrome of inappropriate secretion of antidiuretic hormone (principal); I69.354 Hemiplegia and hemiparesis following cerebral infarction affecting left non-dominant side; I95.1 Orthostatic hypotension; Z66 Do not resuscitate; R00.1 Bradycardia, unspecified; T50.2X5A Adverse effect of carbonic-anhydrase inhibitors, benzothiadiazides and other diuretics, initial encounter; E03.9 Hypothyroidism, unspecified; E86.1 Hypovolemia; I10 Essential (primary) hypertension; E78.5 Hyperlipidemia, unspecified; H57.89 Other specified disorders of eye and adnexa; X58.XXXA Exposure to other specified factors, initial encounter; Z90.710 Acquired absence of both cervix and uterus; Z79.02 Long term (current) use of antithrombotics/antiplatelets; Z79.82 Long term (current) use of aspirin; Z79.899 Other long term (current) drug therapy; Z79.890 Hormone replacement therapy
CPT/HCPCS: 36415; 80048; 80053; 83605; 83735; 83930; 83935; 84295; 84300; 84443; 84484; 85025; 85610; 85730; 93005; 96360; 99285

== ENCOUNTER → 2022-04-27 | Outpatient (CLI) | payer MEDICARE, BC ==
--- NOTE | 2022-04-27 13:24 | US ---
EXAMINATION TYPE: US thyroid st tissue head/neck DATE OF EXAM: 04/27/2022 COMPARISON: NONE CLINICAL HISTORY: 82-year-old female R22.1 LOCALIZED SWELLING, MASS AND LUMP, NECK. Patient states do ctor felt right lateral neck was enlarged. Not on thyroid meds. TECHNIQUE: Multiple sonographic images of the thyroid gland are obtained. FINDINGS: GLAND SIZE: Right Lobe: 3.6 x 1.4 x 1.6 cm Overall Parenchyma: homogenous Left Lobe: 3.8 x 1.2 x 1.6 cm Overall Parenchyma: homogeneous Isthmus Thickness: 0.1 cm NODULES RIGHT: # of nodules measured on right: 2 1. 0.9 X 0.9 x 0.7 cm, upper mid, solid or almost completely solid, hypoechoic TR 4 nodule, which i s wider than tall, with smooth margins, without echogenic foci. Prior size: No prior 2. 0.7 x 0.8 x 0.7 cm, lower mid, cystic or almost completely cystic, anechoic nodule,, likely collo id cyst with some echogenic foci along the wall Prior size: No prior LEFT: # of nodules measured on left: 1 1. 0.3 X 0.3 x 0.3 cm, upper mid, tiny benign colloid cyst. Prior size: No prior ISTHMUS: # of nodules measured in the isthmus: 0 Bilateral neck scanned, no evidence of lymphadenopathy. IMPRESSION: 1. A 9 mm TR4 nodule in the right lobe. This can be reassessed at follow-up. 2. 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
== END | disposition home or self-care (01) ==
LOC: RADUSWWP 09:04
PROVIDERS: ATTEND Internal Medicine
DX: E04.1 Nontoxic single thyroid nodule (principal); R22.1 Localized swelling, mass and lump, neck
CPT/HCPCS: 76536

== ENCOUNTER 2022-05-24 14:39 | Day surgery (SDC) | payer MEDICARE, BC ==
[2022-05-21 09:47] VITALS: BMI 21.4
[~2022-05-24 14:39] MED LIST: SODIUM CHLORIDE 0.9% 1,000 ML IV SCH
[2022-05-24] MEDS ORDERED: SODIUM CHLORIDE 0.9% 500 ML 500 ML IV ONE (14:46)
[2022-05-24 14:54] VITALS: RESP 16; TEMP 98.2
[2022-05-24] MEDS ORDERED: MIDAZOLAM 2 MG/2 ML VIAL IV ONE (16:15)
[2022-05-24] MEDS ORDERED: LIDOCAINE 1% INJ 10MG/ML (30 ML VIAL-PF) SQ ONE (16:18)
--- NOTE | 2022-05-24 16:32 | P.EPPROC ---
- EP Procedure Note Electrophysiology Procedure Note: Loop monitor implant Primary physicians: Marketing Operations Associate: Dr. Daniel Indication: Cryptogenic stroke Patient was brought to the EP lab in a fasting state. Written informed consent was obtained prior to the procedure. The left pectoral area was prepped and draped per protocol. Intravenous antibiotic was administered preoperatively. A subcutaneous Loop monitor was implanted successfully and the wound was closed per protocol. The device was programmed to detect significant roque- arrhythmic and tachy-arrhythmic events, per protocol. Device and programming details: Patient underwent EP procedure under conscious sedation/moderate sedation, monitoring of the level of consciousness and physiologic parameters including but not limited to vital signs and oxygenation. Patient tolerated the procedure well without any acute complications. Start time: 1617 Stop time: 1628
--- NOTE | 2022-05-24 16:33 | P.EPPROC ---
- EP Procedure Note Electrophysiology Procedure Note: Dear Lucille Lakeisha underwent implantation of a loop monitor for management of her history of cryptogenic stroke Her carotid arteries and intracranial arteries seem quite healthy on the CTA She has underlying sick sinus syndrome and I asked her to taper off atenolol She underwent successful implantation of loop monitor to see if she has any silent atrial fibrillation that could explain her cryptogenic stroke Thank you for entrusting me with the care of the patient Warm regards Sincerely Krish Daniel
[2022-05-24 18:24] VITALS: BP 156/71; PULSE 73
== END 2022-05-24 17:31 | disposition home or self-care (01) ==
LOC: CATHEP 14:39
PROVIDERS: ATTEND Internal Medicine Clinical Cardiac Electrophysiology
DX: I63.9 Cerebral infarction, unspecified (principal); I48.91 Unspecified atrial fibrillation; I49.5 Sick sinus syndrome; I10 Essential (primary) hypertension; E78.5 Hyperlipidemia, unspecified; Z79.899 Other long term (current) drug therapy; Z82.49 Family history of ischemic heart disease and other diseases of the circulatory system
CPT/HCPCS: 99152; 33285; C1764; J2250; J0690; J2001

== ENCOUNTER → 2023-07-27 | Outpatient (CLI) | payer MEDICARE, BC ==
--- NOTE | 2023-07-27 13:41 | US ---
EXAMINATION TYPE: US thyroid st tissue head/neck DATE OF EXAM: 07/27/2023 COMPARISON: 04/27/22 CLINICAL INDICATION: Female, 83 years old with history of E04.1 NONTOXIC SINGLE THYROID NODULE; GLAND SIZE: Right Lobe: 4.8 x 1.6 x 1.2 cm Overall Parenchyma: homogeneous Left Lobe: 4.2 x 1.6 x 1.4 cm Overall Parenchyma: homogeneous Isthmus Thickness: 0.11 cm NODULES RIGHT: # of nodules measured on right: 2 1. 0.9 X 0.8 x 0.8 cm, mid , solid or almost completely solid, hypoechoic TR 4 nodule, which is wid er than tall, with smooth margins, without echogenic foci. Prior size: 0.9 x 0.7 x 0.9 cm 2. 0.6 X 0.5 x 0.6 cm, lower mid, mixed cystic and solid, very hypoechoic TR 3 nodule, which is wid er than tall, with smooth margins, without echogenic foci. Prior size: 0.7 x 0.7 x 0.8 cm LEFT: # of nodules measured on left: 1 1. 0.3 X 0.4 x 0.3 cm, mid , cystic or almost completely cystic, very hypoechoic TR 3 nodule, which is wider than tall, with smooth margins, without echogenic foci. Prior size: 0.3 x 0.3 x 0.3 cm ISTHMUS: # of nodules measured in the isthmus: 0 Bilateral neck scanned, no evidence of lymphadenopathy. IMPRESSION: A few bilateral thyroid nodules, dominant 9 mm right TR4 nodule. These remain unchanged compared to 1 06/27/2021. 2017 ACR TI-RADS LEVEL: TR-RADS 4 - Moderately Suspicious: Follow if > 1 cm, FNA if > 1.5 cm *Highest TI-RADS level nodule reported
== END | disposition home or self-care (01) ==
LOC: RADUSWWP 07:07
PROVIDERS: ATTEND Internal Medicine
DX: E04.2 Nontoxic multinodular goiter (principal)
CPT/HCPCS: 76536

== ENCOUNTER → 2024-07-10 | Outpatient (CLI) | payer MEDICARE, BC ==
--- NOTE | 2024-07-10 09:59 | US ---
EXAMINATION TYPE: US thyroid st tissue head/neck DATE OF EXAM: 07/10/2024 COMPARISON: CLINICAL INDICATION: Female, 84 years old with history of E041 NONTOXIC SINGLE THYROID NODULE; follow up thyroid nodules. Not on thyroid meds. TECHNIQUE: Grayscale and color Doppler imaging of the thyroid gland. FINDINGS: GLAND SIZE: Right Lobe: 4.2 x 1.4 x 1.3 cm Overall Parenchyma: homogeneous Left Lobe: 3.6 x 1.3 x 1.5 cm Overall Parenchyma: homogeneous Isthmus Thickness: 0.2 cm NODULES RIGHT: # of nodules measured on right: 2 1. 1.0 X 0.9 x 0.8 cm, mid mid, Prior size: 0.9 x 0.8 x 0.8 cm TIRADS Score: 4 TIRADS Category 4: Composition: Solid or almost completely solid (2 points). Echogenicity: Hypoechoic (2 points). Shape: Wider than tall (0 points). Margin: Smooth (0 points). Echogenic foci: None or large comet-tail artifacts (0 points) Recommendation: If >1.5cm: FNA; If >1cm: Follow up at 1,2, 3,5 years 2. 0.4 X 0.5 x 0.4 cm, lower mid, Prior size: 0.6 x 0.5 x 0.6 cm TIRADS Score: 3 TIRADS Category 3: Composition: Mixed cystic and solid (1 point). Echogenicity: Hypoechoic (2 points). Shape: Wider than tall (0 points). Margin: Smooth (0 points). Echogenic foci: None or large comet-tail artifacts (0 points) Recommendation: If >2.5cm: FNA; If >1.5cm: Follow up at 1,3,5 years LEFT: # of nodules measured on left: Multiple colloid nodules seen 1. Largest colloid= 0.3 X 0.5 x 0.5 cm, mid mid Prior size: 0.3 x 0.4 x 0.3 cm TIRADS Score: 0 TIRADS Category 1: Benign Composition: Cystic or almost completely cystic (0 points). Recommendation: No FNA ISTHMUS: # of nodules measured in the isthmus: 0 Bilateral neck scanned, no evidence of lymphadenopathy. IMPRESSION: Thyroid nodules that meet criteria for follow-up. [facility], , 07/10/2024 9:57 AM
== END | disposition home or self-care (01) ==
LOC: RADUSWWP 09:04
PROVIDERS: ATTEND Internal Medicine
DX: E04.2 Nontoxic multinodular goiter (principal)
CPT/HCPCS: 76536